=== PATIENT | male | born 1955 | race Caucasian/White ===

== ENCOUNTER 2025-02-05 08:37 | Outpatient (AMB) | payer BC, SELFPAY ==
--- OUTSIDE RECORDS SUMMARY | 2025-02-05 08:43 | XMS_ITS | Patient Health Record ---
Author Organization [facility] Address [address] [facility] [address] [place] [phone] Care Team Providers Care Personal Lines Appraiser Name Role Phone Y[facility] Pena Primary Care Provider Laura Tipton Unavailable [phone] Allergies Allergen (clinical drug ingredient) Drug/Non Drug Allergy documented on EMR Reaction Allergy Type Onset Date Status lisinopril Lisinopril Cough Drug Allergy Activ e Results Component Value Reference Range Notes Beta Strep Gp A Culture-[id number] Reviewed date:08/23/2024 02:31:57 PM Interpretation: Performing Lab:[facility], [address] [facility], [address], [place], Phone - [phone], Director - Bassem Notes/Report: Beta Strep Gp A Culture Negative Refe rence Range: Negative Albumin/Creatinine Ratio,Uri ne-[id number] Reviewed date:03/26/2024 06:09:18 PM Interpretation: Performing Lab:[facility], [address] [facility], [place], Phone - [phone], Director - Renuka Notes/Report: Creatinine, Urine 205.5 Not Estab. mg/dL Albumin, Urine 6.7 Not Estab. ug/mL Alb/Creat Ratio 3 0-29 mg/g creat Normal: 0 - 29 Moderately increased: 30 - 300 Severely increased: >300 LP+Non-HDL Cholesterol-21405 5 Reviewed date:03/26/2024 06:09:18 PM Interpretation: Performing Lab:[facility] [place], [address] [place] [address], Phone - [phone], Director - Renuka Notes/Report: Cholesterol, Total 170 100-199 mg/dL Triglycerides 169 0-149 mg/dL HDL Cholesterol 44 >39 mg/dL VLDL Cholesterol Lamberto 29 5-40 mg/dL LDL Chol Calc (NIH) 97 0-99 mg/dL Non-HDL Cholesterol 126 0-129 mg/dL HCV Antibody-[id number] Reviewed date:03/26/2024 06:09:18 PM Interpretation: Performing Lab:[facility] [place], [address] [place] [address], Phone - [phone], Director - Renuka Notes/Report: Hep C Virus Ab Non Reactive Non Reactive HCV antibody alone does not differentiate between previously resolved infection and active infection. Equivocal and Reactive HCV antibody results should be followed up with an HCV RNA test to support the diagnosis of active HCV infection. PDF Report Reviewed date:03/26/2024 06:09:18 PM Interpretation: Performing Lab:[facility] [place], [address] [place] [address], Phone - [phone], Director Coco Grayson Notes/Report: EBCT Coronary calcium score Reviewed date:07/22/2024 01:15:48 PM Interpretation: Performing Lab: Notes/Report: Respiratory Panel w/ SARS-Co [id number] Reviewed date:09/08/2024 07:36:12 PM Interpretation: Performing Lab:[facility] [place], [address] [place] [address], Phone - [phone], - Renuka Notes/Report: Adenovirus Not Detected Not Detected Coronavirus HKU1 Not Detected Not Detected Coronavirus NL63 Not Detected Not Detected Coronavirus 229E Not Detected Not Detected Coronavirus OC43 Not Detected Not Detected SARS-CoV-2 Detected Not Detected Human Metapneumovirus Not Detected Not Detected Human Rhinovirus/Enterovirus Not Detected Not Detected Influenza A Detected Not Detected Influenza A/H1 TNP Test not perf ormed Influenza A/H1-2009 TNP Test not performed Influenza A/H3 Detected Not Detected Influenza B Not Detected Not Detected Parainfluenza 1 Not Detected Not Detected Parainfluenza 2 Not Detected Not Detected Parainfluenza 3 Not Detected Not Detected Parainfluenza 4 Not Detected Not Detected Respiratory Syncytial Virus Not Detected Not Detected Bordetella parapertussis Not Detected Not Detected Bordetella pertussis Not Detected Not Detected Chlamydophila pneumoniae Not Detected Not Detected Mycoplasma pneumoniae Not Detected Not Detected Chest 2 Views Frontal and La t Reviewed date:08/13/2024 06:05:44 PM Interpretation: Performing Lab: Notes/Report: Examination: Chest performed on 08/13/2024. History: COVID 19. Findings: Frontal and lateral views of the chest are compared to a prior study dated 09/07/2015. The cardiac and mediastinal silhouettes are within normal limits. The lungs are clear. Osteophyte formation within the thoracic spine is present. Impression: There is no acute cardiopulmonary disease. WSN: [id number] Ordering Physician: Y[facility] Pena Dictated By: Catie Ward MD Uric Acid-[id number] Reviewed date:09/05/2024 10:19:01 AM Interpretation: Performing Lab:[facility], [address] [place] [address], Phone - [phone], Director - Renuka Notes/Report: Uric Acid 6.7 3.8-8.4 mg/dL Therapeutic ta rget for gout patients: <6.0 Urinalysis, Complete-[id number] Reviewed date:09/05/2024 10:19:02 AM Interpretation: Performing Lab:[facility], [address] [place] [address], [place], Phone - [phone], Director - Renuka Notes/Report: Specific [place] 1.020 1.005-1.030 pH 5.5 5.0-7.5 Urine-Color Yellow Yellow Appearance Clear Clear WBC Esterase Negative Negative Protein Negative Negative/Trace Glucose Negative Negative Ketones Negative Negative Occult Blood Negative Negative Bilirubin Negative Negative Urobilinogen,Semi-Qn 1.0 0.2-1.0 mg/dL Nitrite, Urine Negative Negative Microscopic Examination Micr oscopic follows if indicated. Microscopic Examination See below: Micr oscopic was indicated and was performed. WBC 0-5 0 - 5 /hpf RBC 0-2 0 - 2 /hpf Epithelial Cells (non renal) 0-10 0 - 10 /hpf Casts None seen None seen /lpf Bacteria None seen None seen/Few Vitamin D, 68-[id number] Reviewed date:09/05/2024 10:19:02 AM Interpretation: Performing Lab:[facility], [address] [facility], Phone - [phone], Director - Renuka Notes/Report: Vitamin D, 25-Hydroxy 34.0 30.0-100.0 ng/mL Vitamin D deficiency has been defined by the [place] [employer] and an Endocrine Society practice guideline as a level of serum 25-OH vitamin D less than 20 ng/mL (1,2). The Endocrine Society went on to further define vitamin D insufficiency as a level between 21 and 29 ng/mL (2). 1. IOM ([place] of [employer]). 2010. Dietary reference intakes for calcium and D. [place]: The National AcademGetQuik Press. 2. Rema MF, Osmar NC, Lisa CHERRY, et al. Evaluation, treatment, and prevention of vitamin D deficiency: an Endocrine Society clinical practice guideline. JCEM. 2010; 96(7):1911-30. Albumin/Creatinine Ratio,Uri ne-[id number] Reviewed date:09/05/2024 10:19:02 AM Interpretation: Performing Lab:[facility], [address] [facility], Phone - [phone], Director - Renuka Notes/Report: Creatinine, Urine 203.7 Not Estab. mg/dL Albumin, Urine 9.1 Not Estab. ug/mL Alb/Creat Ratio 4 0-29 mg/g creat Normal: 0 - 29 Moderately increased: 30 - 300 Severely increased: >300 Comp. Metabolic Panel (14)-3 [id number] Reviewed date:09/05/2024 10:19:02 AM Interpretation: Performing Lab:[facility], [address] [facility], Phone - [phone], Director - Renuka Notes/Report: Glucose 105 70-99 mg/dL BUN 15 8-27 mg/dL Creatinine 0.95 0.76-1.27 mg/dL eGFR 88 >59 mL/min/1.73 BUN/Creatinine Ratio 16 10-24 Sodium 144 134-144 mmol/L Potassium 4.1 3.5-5.2 mmol/L Chloride 101 96-106 mmol/L Carbon Dioxide, Total 28 20-29 mmol/L Calcium 9.2 8.6-10.2 mg/dL Protein, Total 7.0 6.0-8.5 g/dL Albumin 4.2 3.9-4.9 g/dL Globulin, Total 2.8 1.5-4.5 g/dL Bilirubin, Total 0.4 0.0-1.2 mg/dL Alkaline Phosphatase 86 44-121 IU/L AST (SGOT) 18 0-40 IU/L ALT (SGPT) 26 0-44 IU/L LP+Non-HDL Cholesterol-[id number] 5 Reviewed date:09/05/2024 10:19:03 AM Interpretation: Performing Lab:[facility] [place], [address] [place] [address], Phone - [phone], Director - Carlosy Notes/Report: Cholesterol, Total 162 100-199 mg/dL Triglycerides 210 0-149 mg/dL HDL Cholesterol 43 >39 mg/dL VLDL Cholesterol Lamberto 35 5-40 mg/dL LDL Chol Calc (NIH) 84 0-99 mg/dL Non-HDL Cholesterol 119 0-129 mg/dL CR Chest Routine 2 Views Reviewed date:08/14/2024 03:49:28 PM Interpretation: Performing Lab: Notes/Report: Urinalysis, Complete-[id number] Reviewed date:03/26/2024 06:09:18 PM Interpretation: Performing Lab:[facility] [place], [address] [place] [address], Phone - [phone], Director - Carlosy Notes/Report: Specific [place] 1.022 1.005-1.030 pH 5.5 5.0-7.5 Urine-Color Yellow Yellow Appearance Clear Clear WBC Esterase Negative Negative Protein Negative Negative/Trace Glucose Negative Negative Ketones Negative Negative Occult Blood Negative Negative Bilirubin Negative Negative Urobilinogen,Semi-Qn 0.2 0.2-1.0 mg/dL Nitrite, Urine Negative Negative Microscopic Examination Micr oscopic follows if indicated. Microscopic Examination See below: Micr oscopic was indicated and was performed. WBC None seen 0 - 5 /hpf RBC 0-2 0 - 2 /hpf Epithelial Cells (non renal) None seen 0 - 10 /hpf Casts None seen None seen /lpf Bacteria None seen None seen/Few CBC With Differential/Platel et-[id number] Reviewed date:03/26/2024 06:09:18 PM Interpretation: Performing Lab:[facility] [place], [address] [place] [address], Phone - [phone], Director - Carlosy Notes/Report: WBC 6.3 3.4-10.8 x10E3/uL RBC 5.07 4.14-5.80 x10E6/uL Hemoglobin 14.0 13.0-17.7 g/dL Hematocrit 43.2 37.5-51.0 % MCV 85 79-97 fL MCH 27.6 26.6-33.0 pg MCHC 32.4 31.5-35.7 g/dL RDW 14.3 11.6-15.4 % Platelets 228 150-450 x10E3/uL Neutrophils 66 Not Estab. % Lymphs 23 Not Estab. % Monocytes 8 Not Estab. % Eos 2 Not Estab. % Basos 1 Not Estab. % Neutrophils (Absolute) 4.2 1.4-7.0 x10E3/uL Lymphs (Absolute) 1.4 0.7-3.1 x10E3/uL Monocytes(Absolute) 0.5 0.1-0.9 x10E3/uL Eos (Absolute) 0.1 0.0-0.4 x10E3/uL Baso (Absolute) 0.0 0.0-0.2 x10E3/uL Immature Granulocytes 0 Not Estab. % Immature Grans (Abs) 0.0 0.0-0.1 x10E3/uL Prostate-Specific Ag-[id number] Reviewed date:03/26/2024 06:09:18 PM Interpretation: Performing Lab:[email or web address], [address] [place] [address], Phone - [phone], Director - [facility] Notes/Report: Prostate Specific Ag <0.1 0.0-4.0 ng/mL Lindsey ECLIA methodology. . According to the [place] [employer], Serum PSA should decrease and remain at undetectable levels after radical prostatectomy. The AUA defines biochemical recurrence as an initial PSA value 0.2 ng/mL or greater followed by a subsequent confirmatory PSA value 0.2 ng/mL or greater. Values obtained with different assay methods or kits cannot be used interchangeably. Results cannot be interpreted as absolute evidence of the presence or absence of malignant disease. Vitamin D, 12-Moyjplp-[id number] Reviewed date:03/26/2024 06:09:18 PM Interpretation: Performing Lab:[email or web address], [address] [facility], [place], Phone - [phone], Director - MDJodry Notes/Report: Vitamin D, 25-Hydroxy 33.2 30.0-100.0 ng/mL Vitamin D deficiency has been defined by the [place] [employer] and an Endocrine Society practice guideline as a level of serum 25-OH vitamin D less than 20 ng/mL (1,2). The Endocrine Society went on to further define vitamin D insufficiency as a level between 21 and 29 ng/mL (2). 1. IOM ([place]). 2010. Dietary reference intakes for calcium and D. [place]: The National Academies Press. 2. Rema MF, Osmar SUGGS, Lisa CHERRY, et al. Evaluation, treatment, and prevention of vitamin D deficiency: an Endocrine Society clinical practice guideline. JCEM. 2010; 96(7):1911-30. Comp. Metabolic Panel (14)-3 Reviewed date:03/26/2024 06:09:18 PM Interpretation: Performing Lab:[facility], [address] [place] [address], [place], Phone - [phone], Director - Renuka Notes/Report: Glucose 91 70-99 mg/dL BUN 13 8-27 mg/dL Creatinine 0.96 0.76-1.27 mg/dL eGFR 87 >59 mL/min/1.73 BUN/Creatinine Ratio 14 10-24 Sodium 144 134-144 mmol/L Potassium 3.6 3.5-5.2 mmol/L Chloride 102 96-106 mmol/L Carbon Dioxide, Total 26 20-29 mmol/L Calcium 8.9 8.6-10.2 mg/dL Protein, Total 6.9 6.0-8.5 g/dL Albumin 4.2 3.9-4.9 g/dL Globulin, Total 2.7 1.5-4.5 g/dL Bilirubin, Total 0.4 0.0-1.2 mg/dL Alkaline Phosphatase 83 44-121 IU/L AST (SGOT) 23 0-40 IU/L ALT (SGPT) 22 0-44 IU/L Reason For Referral No Information Medications Medication SIG (Take, Route, Frequency, Duration) Notes Start Date End Date Status Omeprazole 20 MG TAKE 1 CAPSULE ONCE A DAY; Duration: 90 Active Multi For Him - Orally Acti ve Valsartan-hydroCHLOROthiazi de 320-25 MG TAKE 1 TABLET DAILY; Duration: 90 Active Sertraline HCl 50 MG TAKE 1 TABLET DAILY ; Duration: 90 Active Rosuvastatin Calcium 20 MG 1 tablet Oral ly Once a day; Duration: 90 days 09/02/2024 Active Immunizations Vaccine Route Administration Date Status Comme nts *Influenza, High Dose Seasonal, Quadrivatent Unknown 05/05/2022 Administered *Mqlnvhcab-Qaichen-Ximw Dose-65+ Unknown 03/28/2024 Administered *Influenza-Quadrivalent IM Intramuscular 05/25/2023 Admini stered *PREVNAR 20 IM Intramuscular 03/13/2024 Administered *Tdap Unknown 02/12/2010 Administered COVID 19 (Pfizer 12+) Unknown 10/30/2021 Administered COVID COMIRNATY Pfizer Unknown 05/31/2023 Administered COVID Spikevax Moderna Unknown 03/28/2024 Administered HZJYV-71-Tikzyo Vaccine Unknown 09/28/2020 Administered FWIDO-82-Rovswi Vaccine Unknown 10/19/2020 Administered GEFQH-78-Cctxah Vaccine Unknown 06/26/2021 Administered Influenza, seasonal, injectable, preservative free, 4 yrs and above Unknown 04/23/2008 Administered Influenza, seasonal, injectable, preservative free, 4 yrs and above Unknown 04/23/2009 Administered Influenza, seasonal, injectable, preservative free, 4 yrs and above Unknown 09/22/2009 Administered Influenza, seasonal, injectable, preservative free, 4 yrs and above Unknown 05/17/2010 Administered Influenza, seasonal, injectable, preservative free, 4 yrs and above Unknown 03/29/2011 Administered Influenza, seasonal, injectable, preservative free, 4 yrs and above Unknown 05/30/2017 Administered Vdxkkuhqn-[id number] Afluria-Single Unknown 05/10/2018 Administered Influenza-Afluria (IIV4) Unknown 06/24/2019 Administere d Influenza-Afluria (IIV4) Unknown 06/01/2020 Administere d RSV-Arexby Unknown 06/26/2023 Administered Td (adult) preservative free Unknown 05/02/2000 Administered Td (adult) preservative free IM Intramuscular 01/28/2020 Administered Social History Tobacco Use: Social History Observation Description Date Details (start date - stop date) Never Smoker NA - NA AUDIT-C (Standard) Question Answer Notes Did you have a drink contain ing alcohol in the past year? Yes How often did you have six o r more drinks on one occasion in the past year? Never (0 point) How many drinks did you have on a typical day when you were drinking in the past year? 1 or 2 drinks (0 point) How often did you have a dri nk containing alcohol in the past year? 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) Active confirmed Problem Information temporarily unavailable Vitamin D deficiency, unspecified (E55.9) Active confirmed Problem Information temporarily unavailable Morbid (severe) obesity due to excess calories (E66.01) Active confirmed Problem Information temporarily unavailable Mixed hyperlipidemia (E78.2) Active confirmed Problem Information temporarily unavailable Generalized anxiety disorder (F41.1) Active confirmed Problem Information temporarily unavailable Anxiety disorder, unspecified (F41.9) Active confirmed Problem Information temporarily unavailable Obstructive sleep apnea (adult) (pediatric) (G47.33) Active confirmed Problem Information temporarily unavailable Carpal tunnel syndrome, right upper limb (G56.01) Active confirmed Problem Information temporarily unavailable Carpal tunnel syndrome, left upper limb (G56.02) Active confirmed Problem Information temporarily unavailable Sensorineural hearing loss, bilateral (H90.3) Active confirmed Problem Information temporarily unavailable Hypertensive chronic kidney disease with stage 1 through stage 4 chronic kidney disease, or unspecified chronic kidney disease (I12.9) Active confirmed Problem Information temporarily unavailable Gastro-esophageal reflux disease without esophagitis (K21.9) Active confirmed Problem Information temporarily unavailable Chronic gout, unspecified, 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0) Active confirmed Problem Information temporarily unavailable Personal history of malignant neoplasm of prostate (Z85.46) Active confirmed Problem Information temporarily unavailable Personal history of colonic polyps (Z86.010) Active confirmed Problem Information temporarily unavailable Personal history of colonic polyps (Z86.010) Active confirmed Problem Information temporarily unavailable Body mass index [BMI] 37.0-37.9, adult (Z68.37) Active confirmed Problem Information temporarily unavailable Body mass index [BMI] 35.0-35.9, adult (Z68.35) Inactive confirmed Problem Information temporarily unavailable Ulcer of intestine (K63.3) Problem resolved confirmed Problem Information temporarily unavailable Derangement of posterior horn of lateral meniscus due to old tear or injury, left knee (M23.252) Problem resolved confirmed Problem Information temporarily unavailable COVID19 CHACE-Virus Identified (U07.1) Problem resolved confirmed Vital Signs Heart Rate 90 /min 09/02/2024 Temperature 96.3 degrees Fahrenheit 09/02/2024 Blood pressure diastolic 74 mm Hg 09/02/2024 Oximetry 96 % 09/02/2024 Height 70 in 09/02/2024 Blood pressure systolic 114 mm Hg 09/02/2024 Weight 254 lbs 09/02/2024 BMI 36.44 kg/m2 09/02/2024 Encounters Encounter Location Date Provider Diagnosis Yosvany Pena MD [address] [id number] 04/01/2024 Yosvany Pena MD [address] [id number] 08/06/2024 Yosvany Pena MD [address] [id number] 08/13/2024 Yosvany JUSTICEID19 CHACE-Virus Identified U07.1 Yosvany Pena MD [address] [id number] 08/13/2024 Yosvany Pena MD [address] [id number] 08/22/2024 Yosvany Pena MD [address] [id number] 08/23/2024 Yosvany Pena MD [address] [id number] 09/04/2024 Yosvany Pena MD [address] [id number] 09/05/2024 Yosvany Pena MD [address] [id number] 09/06/2024 Yosvany Pena MD [address] [place] [id number] 09/08/2024 Yosvany Pena MD [address] [place] [address], [place] [id number] 04/02/2024 Yosvany Pena MD [address] [place] [address] [id number] 04/10/2024 Yosvany Pena MD [address] [place] [address] [id number] 08/13/2024 Yosvany Pena MD [address] [place] [address] [id number] 08/18/2024 Yosvany Pena MD [address] [place] [address], [place] [id number] 08/19/2024 Yosvany Pena MD [address] [place] [address] [id number] 08/20/2024 Yosvany Pena MD [address] [place] [address] [id number] 10/28/2024 Yosvany Pena MD [address] [place] [address] [id number] 10/28/2024 Yosvany Pena MD [address] [place] [address] [id number] 09/02/2024 Yosvany Pena Hypertensive chronic kidney disease with stage 1 through stage 4 chronic kidney disease, or unspecified chronic kidney disease I12.9 ; Chronic kidney disease, stage 2 (mild) N18.2 ; Gastro-esophageal reflux disease without esophagitis K21.9 ; Body mass index [BMI] 35.0-35.9, adult Z68.35 ; Morbid (severe) obesity due to excess calories E66.01 ; Generalized anxiety disorder F41.1 ; Obstructive sleep apnea (adult) (pediatric) G47.33 ; Mixed hyperlipidemia E78.2 ; Chronic gout, unspecified, without tophus (tophi) M1A.9XX0 and Vitamin D deficiency, unspecified E55.9 Yosvany Pena MD [address] [place] [address] [id number] 09/05/2024 Yosvany Pena Acute upper respirat ory infection, unspecified J06.9 Yosvany Pena MD [address] [id number] 03/13/2024 Yosvany Pena Encounter for genera l adult medical examination without abnormal findings Z00.00 ; Hypertensive chronic kidney disease with stage 1 through stage 4 chronic kidney disease, or unspecified chronic kidney disease I12.9 ; Chronic kidney disease, stage 2 (mild) N18.2 ; Gastro-esophageal reflux disease without esophagitis K21.9 ; Body mass index [BMI] 35.0-35.9, adult Z68.35 ; Morbid (severe) obesity due to excess calories E66.01 ; Generalized anxiety disorder F41.1 ; Obstructive sleep apnea (adult) (pediatric) G47.33 ; Mixed hyperlipidemia E78.2 ; Family history of malignant neoplasm of digestive organs Z80.0 ; Personal history of colonic polyps Z86.010 ; Personal history of malignant neoplasm of prostate Z85.46 ; Chronic gout, unspecified, without tophus (tophi) M1A.9XX0 ; Vitamin D deficiency, unspecified E55.9 ; Encounter for screening for malignant neoplasm of colon Z12.11 ; Encounter for screening for malignant neoplasm of prostate Z12.5 ; Encounter for screening for cardiovascular disorders Z13.6 ; Encounter for immunization Z23 ; Encounter for antibody response examination Z01.84 ; Encounter for screening for other viral diseases Z11.59 ; Sensorineural hearing loss, bilateral H90.3 and Presence of external hearing-aid Z97.4 Yosvany Pena MD [address] [id number] 04/10/2024 Yosvany Pena Hypertensive chronic kidney disease with stage 1 through stage 4 chronic kidney disease, or unspecified chronic kidney disease I12.9 Yosvany Pena MD [address] [id number] 04/02/2024 Laura Tipton Hypertensive chronic kidney disease with stage 1 through stage 4 chronic kidney disease, or unspecified chronic kidney disease I12.9 and Chronic kidney disease, stage 2 (mild) N18.2 Yosvany Pena MD [address] [id number] 08/20/2024 Yosvany Pena Acute pharyngitis, unspecified J02.9 Assessments Encounter Date Diagnosis (ICD Code) Assessment Notes Treatment Notes Treatment Clinical Notes Section Notes 04/02/2024 Hypertensive chronic kidney disease with stage 1 through stage 4 chronic kidney disease, or unspecified chronic kidney disease (ICD-10 - I12.9) Reviewed patient's blood pressure log on his home blood pressure monitor and readings are noted to be between 140s-150s over 70s-80s. This is a new finding for patient as his documented blood pressures have all been stable prior to this incident. Suspect that patient's blood pressure is responding and elevated due to his recent COVID-vaccine. It is only been 5 days since his COVID-vaccine and would like patient to continue his medication regimen and monitor his morning blood pressures at home, and be seen in the office next week for blood pressure check to ensure his blood pressure has normalized post COVID-vaccine 04/02/2024 Chronic kidney disease, stage 2 (mild) (ICD-10 - N18.2) Stable with estimated GFR in the high 70s. Continue medication regimen to control comorbidity of hypertension 04/10/2024 Hypertensive chronic kidney disease with stage 1 through stage 4 chronic kidney disease, or unspecified chronic kidney disease (ICD-10 - I12.9) His blood pressure is improving. He is using a nonvalidated machine at home and his blood pressure log is entered into the chart as an image. At the present time he has improved blood pressure and his transient elevated blood pressure are complication of his COVID vaccination. This should continue to improve. Recommend he use a validated blood pressure cuff at home to verify control. He has a new machine that he has yet to set up and recommend he do so. If he has elevated blood pressures of concern at home we can always reevaluate in the office. No change in medical therapy indicated at present time 08/20/2024 Acute pharyngitis, unspecified (ICD-10 - J02.9) See prior message for additional history. He is concerned that he may have strep. He does not have a headache and he has a cough without any tender lymph nodes and without a fever. His prior probability for strep pharyngitis is low. Culture is done and if the culture is surprisingly positive then we can treat him with antibiotic therapy.Otherwise recommend conservative therapy 09/02/2024 Hypertensive chronic kidney disease with stage 1 through stage 4 chronic kidney disease, or unspecified chronic kidney disease (ICD-10 - I12.9) His blood pressure is much lower. That may be due to his recent illness but at the present time can continue current medical therapy and reevaluate this fall. 09/02/2024 Chronic kidney disease, stage 2 (mild) (ICD-10 - N18.2) Stable estimated GFR in the 70s. Continue control of comorbidity of hypertension. Recheck status 03/13/2024 Hypertensive chronic kidney disease with stage 1 through stage 4 chronic kidney disease, or unspecified chronic kidney disease (ICD-10 - I12.9) Stable at present. Continue current medical therapy 03/13/2024 Encounter for general adult medical examination without abnormal findings (ICD-10 - Z00.00) General healthcare up-to-date. Check routine labs. Await completion of healthcare proxy and MOST form. He is reminded to complete this. 09/05/2024 Acute upper respiratory infection, unspecified (ICD-10 - J06.9) 08/13/2024 COVID19 CHACE-Virus Identified (ICD-10 - U07.1) 03/13/2024 Chronic kidney disease, stage 2 (mild) (ICD-10 - N18.2) Stable with estimated GFR in the high 70s. Continue control of comorbidity of hypertension 09/02/2024 Gastro-esophageal reflux disease without esophagitis (ICD-10 - K21.9) Symptomatically stable. 09/02/2024 Body mass index [BMI] 35.0-35.9, adult (ICD-10 - Z68.35) Stable at present. Continue exercise such as walking 03/13/2024 Gastro-esophageal reflux disease without esophagitis (ICD-10 - K21.9) Symptomatically stable. 03/13/2024 Body mass index [BMI] 35.0-35.9, adult (ICD-10 - Z68.35) Stable at present. Continue exercise such as walking 09/02/2024 Morbid (severe) obesity due to excess calories (ICD-10 - E66.01) Continue to encourage diet and exercise and weight loss 09/02/2024 Generalized anxiety disorder (ICD-10 - F41.1) Stable with current medical therapy 03/13/2024 Morbid (severe) obesity due to excess calories (ICD-10 - E66.01) Continue to encourage diet and exercise and weight loss 03/13/2024 Generalized anxiety disorder (ICD-10 - F41.1) Controlled with current medical therapy 09/02/2024 Obstructive sleep apnea (adult) (pediatric) (ICD-10 - G47.33) Stable at present. He continues to use CPAP with benefit. He also sleeps in a recliner because his shoulder feels better when he does so. 09/02/2024 Mixed hyperlipidemia (ICD-10 - E78.2) Stable at present. His calculated cardiovascular risk 7.8%. He may benefit from changing his statin therapy for lower rate of progression as he ages. 03/13/2024 Obstructive sleep apnea (adult) (pediatric) (ICD-10 - G47.33) Continues to use CPAP with benefit 03/13/2024 Mixed hyperlipidemia (ICD-10 - E78.2) Stable on recent labs as reviewed. His calculated risk is slightly elevated at 10.8%. Recommend coronary artery calcium score for further risk assessment and validation. If his risk is higher than he would benefit from more aggressive risk modification 09/02/2024 Chronic gout, unspecified, without tophus (tophi) (ICD-10 - M1A.9XX0) Stable without any active flares. Can recheck uric acid 09/02/2024 Vitamin D deficiency, unspecified (ICD-10 - E55.9) Stable on prior labs as reviewed. Recheck status and would consider supplementation for goal level of 30+ if possible 50+ 03/13/2024 Family history of malignant neoplasm of digestive organs (ICD-10 - Z80.0) Up-to-date on colonoscopy 03/13/2024 Personal history of colonic polyps (ICD-10 - Z86.010) Up-to-date on colonoscopy 03/13/2024 Personal history of malignant neoplasm of prostate (ICD-10 - Z85.46) No evidence of recurrence 03/13/2024 Chronic gout, unspecified, without tophus (tophi) (ICD-10 - M1A.9XX0) Stable without any active flares 03/13/2024 Vitamin D deficiency, unspecified (ICD-10 - E55.9) Fair control on prior labs as reviewed. Continue vitamin D supplementation for goal level of 30+ and if possible 50+ 03/13/2024 Encounter for screening for malignant neoplasm of colon (ICD-10 - Z12.11) Up-to-date on colon cancer screening 03/13/2024 Encounter for screening for malignant neoplasm of prostate (ICD-10 - Z12.5) Can check PSA has prostate cancer screening realizing the limitation of this test as a screening test 03/13/2024 Encounter for screening for cardiovascular disorders (ICD-10 - Z13.6) Blood pressure is stable. Can check for comorbidity of hyperlipidemia and hyperglycemia to further assess risk. 03/13/2024 Encounter for immunization (ICD-10 - Z23) Vaccines updated 03/13/2024 Encounter for antibody response examination (ICD-10 - Z01.84) He would be considered immune to rubeola by virtue of his age 0803/13/2024 Encounter for screening for other viral diseases (ICD-10 - Z11.59) Can screen for hepatitis C as per general recommendation 03/13/2024 Sensorineural hearing loss, bilateral (ICD-10 - H90.3) Stable and unchanged 03/13/2024 Presence of external hearing-aid (ICD-10 - Z97.4) He had his hearing test and now is using hearing aids with benefit 03/13/2024 Other This note was created with voice dictation recognition software and may contain errors of grammar and syntax. Also labs were reviewed with patient. 09/02/2024 Other This note was created with voice dictation recognition software and may contain errors of grammar and syntax. Also labs were reviewed with patient. 04/10/2024 Other This note was created with voice dictation recognition software and may contain errors of grammar and syntax. 08/20/2024 Other This note was created with voice dictation recognition software and may contain errors of grammar and syntax. Plan Of Treatment Pending Test Test Name Order Date X ray : Chest with 2 views 08/24/2022 25OH VITAMIN D 02/07/2019 25OH VITAMIN D 02/23/2023 25OH VITAMIN D 02/21/2022 25OH VITAMIN D 08/09/2017 25OH VITAMIN D 08/09/2021 25OH VITAMIN D 02/03/2021 COMPLETE CBC WITH DIFF 02/03/2021 COMPLETE CBC WITH DIFF 08/09/2021 COMPLETE CBC WITH DIFF 08/09/2017 COMPLETE CBC WITH DIFF 02/21/2022 COMPLETE CBC WITH DIFF 02/07/2019 COMPLETE URINALYSIS 02/03/2021 COMPLETE URINALYSIS 02/07/2019 COMPLETE URINALYSIS 02/21/2022 COMPLETE URINALYSIS 02/23/2023 COMPLETE URINALYSIS 08/09/2021 COMPLETE URINALYSIS 08/09/2017 COMPREHENSIVE METABOLIC PANEL 02/03/2021 COMPREHENSIVE METABOLIC PANEL 08/09/2017 COMPREHENSIVE METABOLIC PANEL 08/09/2021 COMPREHENSIVE METABOLIC PANEL 02/23/2023 COMPREHENSIVE METABOLIC PANEL 02/21/2022 COMPREHENSIVE METABOLIC PANEL 02/07/2019 FERRITIN 08/09/2017 IMMUNOFIXATION SERUM 08/09/2017 LDH 08/09/2017 LIPID PANEL W REFLEX TO DLDL 08/09/2017 LIPID PANEL W REFLEX TO DLDL 08/09/2021 LIPID PANEL W REFLEX TO DLDL 02/03/2021 LIPID PANEL W REFLEX TO DLDL 02/21/2022 LIPID PANEL W REFLEX TO DLDL 02/23/2023 LIPID PANEL W REFLEX TO DLDL 02/07/2019 MAGNESIUM 02/07/2019 PSA 02/21/2022 PSA 02/03/2021 PSA 08/09/2021 RETICULOCYTE COUNT 08/09/2017 URIC ACID 08/09/2021 URIC ACID 02/03/2021 URIC ACID 02/21/2022 URIC ACID 02/23/2023 URINARY MICROALBUMIN 02/03/2021 VITAMIN B12 08/09/2017 CBC 06/03/2021 COMPREHENSIVE METABOLIC PANEL 06/03/2021 ESR 06/03/2021 FOLATE 08/09/2017 URIC ACID 06/03/2021 ANTI-HEPATITIS C W/RFLX HCV QNT 02/22/20 22 MMR (MEASLES, MUMPS, RUBELLA) IGG TITER 02/03/2021 MMR (MEASLES, MUMPS, RUBELLA) IGG TITER 02/07/2019 COVID and INFLUENZA Rapid Assay 08/08/19 23 Urinalysis, Complete-[id number] 11/22/2023 Albumin/Creatinine Ratio,Urine-[id number] Future Test Test Name Order Date 25OH VITAMIN D 01/22/2024 COMPLETE CBC WITH DIFF 01/22/2024 COMPLETE URINALYSIS 01/22/2024 COMPREHENSIVE METABOLIC PANEL 01/22/2024 LIPID PANEL W REFLEX TO DLDL 01/22/2024 PSA 01/22/2024 URIC ACID 01/22/2024 ANTI-HEPATITIS C W/RFLX HCV QNT 01/22/20 24 Next Appt Details Provider Name:Yosvany Pena , 03/25/2025 11:00:00 AM, [address] [place] [address], [address], [place], [place], [id number], Insurance Providers Payer Name Payer Address Payer Phone Subscriber Number Group Number Insured Name Patient Relationship to Insured Coverage Start Date Coverage End Date [employer] MEDICARE PPO BLUE [address] [place] [address] [id number] Tarik Beckett Self - patient is the insured Medical (General) History Medical History History ICD Code Essential (primary) hypertension I10 Personal history of malignant neoplasm o f prostate Z85.46 Obstructive sleep apnea (adult) (pediatr ic) G47.33 Gastro-esophageal reflux disease without esophagitis K21.9 Anxiety disorder, unspecified F41.9 Family history of malignant neoplasm of digestive organs Z80.0 Personal history of colonic polyps Z86.0 10 Benign lipomatous neoplasm of skin and s ubcutaneous tissue of right leg D17.23 Derangement of posterior hor n of lateral meniscus due to old tear or injury, left knee (resolved 08/09/2021) COVID19 CHACE-Virus Identified (resolved 1 07/25/2022) undefined Ulcer of intestine (resolved 05/25/2023) Surgical History Surgery Date(Month/Year) Uvulectomy 07/2015 prostatectomy 07/2009 ORIF Tibia Fracture, Left ORIF Fibula Fracture, Left Inguinal Hernia Repair, LEFT tonsillectomy arthroscopic knee surgery 06/2021 Hospitalization History Reason Date(Month/Year)
--- OUTSIDE RECORDS SUMMARY | 2025-02-05 08:43 | XMS_ITS | Data Portability ---
Author Organization [facility] Address [address] [facility],[address] [place] [address] Care Team Providers Care Scrap Preparation Supervisor Name Role Phone LO GARCIA Primary Care Provider Assessment Encounter Date Assessment Date Assessment LastModified by Organization Details LastModified Time 08/06/2021 08/06/2021 Tarik Beckett is a 66 year old man with low back pain radiating into both lower extremities. On exam ,he has pain on flexion. MRI Lumbar spine shows Spondylotic and degenerative disc changes of the lumbar spine are present . Trial of Lumbar epidural steroid injections under fluroscopic guidance was recommended if pain returns. Current pain level is 1-2/10. The risks and benefits of the procedure were discussed in detail. He wishes to proceed.He will call for an appointment. He needs a salesperson driver on the day of the procedure. [email or web address] Not available 08/10/2021 14:00:02 Plan of Treatment Reminders Order Date Submit Date Provider Last Modified By Organization Details Last Modified Time Details Appointments None record ed. Lab None record ed. Referral None record ed. Procedures None record ed. Surgeries None record ed. Imaging None record ed. Medication Orders None record ed. Patient TargetsNo targets recorded. Patient Instructions Encounter Date Encounter Id Patient Instructions Last Modified By Organization Details Last Modified Time 08/06/2021 [id number] He was advised against bed rest lasting longer than four days and to continue activities as tolerated. [email or web address] Not available 08/10/2021 13:59:13 Reason for Referral None Reported. Problems Name Problem SNOMED Code Status Onset Date Resolution Date Notes Provider Name and Address Organization Details Recorded Time Degeneration of lumbar intervertebral disc 73767968 Active Driss gallegos MD [address] [facility] [place] , [address], [place], [address], [place] [facility] 09:40:37 Lumbosacral radiculopathy 7735592 Active Driss gallegos MD [address] [facility] , [address], [place], [address], [place] [facility] 13:27:52 Problem Notes None recorded. Procedures Surgical History Date Name Laterality Status Provider Name and Address Organization Details Recorded Time Tonsillectomy completed Driss Nava MD [address] [facility] , [address], [place], [address], [place] [facility] 08/06/2021 09:45:46 Hernia Repair completed Driss Nava MD [address] [facility] , [address], [place], [address], [place] [facility] 08/06/2021 09:46:21 Prostate Surgery completed Driss Nava MD [address] [facility] , [address], [place], [address], [place] [facility] 08/06/2021 09:46:35 Knee arthroscopy/surger y completed Driss Nava MD [address] [facility] , [address], [place], [address], [place] [facility] 08/06/2021 09:46:52 Imaging Results None recorded. Procedure Notes None recorded. Medical Equipment None Reported. Allergies Allergen ID Allergen Name Allergen Category Reaction Reaction Severity Criticality Documentation Date Start Date Code Code System Note Provider Name and Address Organization Details Recorded Time 91428 lisinopri l medicatio n cough Not available Not available 08/06/2021 35491 RxNorm Driss gallegos MD [address] [facility] , [address], [place], [address], [place] [facility] 09:37:36 Medications Name Sig Start Date Stop Date Status Note LastModified by Organization Details LastModified Time amoxicillin 500 mg capsule 08/06 completed Not Available Not Available Not Available benzonatate 200 mg capsule 08/06 completed Not Available Not Available Not Available meloxicam 15 mg tablet active Not Available Not Available Not Available simvastatin 20 mg tablet active Not Available Not Available No t Available gabapentin 300 mg capsule 08/06 completed Not Available Not Available Not Available methylprednisolo ne 4 mg tablets in a dose pack 08/06 completed Not Available Not Available Not Available sertraline 50 mg tablet active Not Available Not Available Not Available diazepam 5 mg tablet 08/06 completed Not Available Not Available Not Available omeprazole active Not Available Not Av ailable Not Available valsartan 320 mg-hydrochloroth iazide 25 mg tablet active Not Available Not Available Not Available Anoro Ellipta 62.5 mcg-25 mcg/actuation powder for inhalation active Not Available Not Available N ot Available Vitals Date Recorded Body height Body mass index (BMI) Body weight Heart rate Oxygen saturation Oxygen saturation in Arterial blood by Pulse oximetry Systolic And Diastolic Provider Name and Address Organization Details Last Updated DateTime 2 182.88 cm 35.3 kg/m2 398671. 02 g 73 /min 96 % 96 % 164/88 mm[Hg] Driss gallegos MD [address] [facility] , [address], [place], [address], [place] [facility] 09:27:58 Social History Question Answer Notes LastModified by Organizat ion Details LastModified Time Tobacco Smoking Status Never Smoker Driss Nava MD [address] [facility] , [address], [place], [address], [place] [facility] 08/06/2021 09:42:47 Are You Blind Or Do You Have Difficulty Seeing? Yes Wears Glasses Information not available 08/06/2021 In The 14 Days Before Symptom Onset, Have You Had Close Contact With A Laboratory-confir med COVID-19 While That Case Was Ill? No Information not available 08/06/2021 In The 14 Days Before Symptom Onset, Have You Had Close Contact With A Person Who Is Under Investigation For COVID-19 While That Person Was Ill? No Information not available 08/06/2021 Have You Been To An Area Known To Be High Risk For COVID-19? No Information not available 08/06/2021 Are You Deaf Or Do You Have Serious Difficulty Hearing? Yes Wears Hearing Aid Information not available 08/06/2021 What Is The Highest Grade Or Level Of School You Have Completed Or The Highest Degree You Have Received? DF10260-2 Information not available 08/06/2021 Do You Have Difficulty Walking Or Climbing Stairs? No Information not available 08/06/2021 Sex: Unknown Functional Status Question Answer Note LastModified by Organizat ion Details LastModified Time Do you use any illicit or recreational drugs? No Information not available 08/06/2021 What is your level of alcohol consumption? None Information not available 08/06/2021 Are you currently employed? Yes Information not available 08/06/2021 Do you have difficulty doing errands alone? No Information not available 08/06/2021 What is your occupation? [employer] Information not available 08/06/2021 Do you have difficulty dressing or bathing? No Information not available 08/06/2021 Mental Status Question Answer Note LastModified by Organization D etails LastModified Time Do you have difficulty concentrating, remembering or making decisions? No Information no t available 08/06/2021 Family History Relationship Description Onset Age of this Age Resolved Age Notes LastModified by Organization Details LastModified Time Sister Arthritis [email or web address] Not avail able 08/06/2021 09:41:09 Medical History Condition Response Anxiety Disorder Y Irritable Bowel Syndrome Y Hypertension Y GERD/Reflux Y Past Encounters Encounter ID Performer Location Encounter Start Date Encounter Closed Date Diagnosis/Indication Diagnosis SNOMED-CT Code Diagnosis ICD10 Code Diagnosis Note [id number] Driss Nava MD PA[facility] [address] [place] [address] [address] [place] [address] 08/06/2021 08:52:28 08/10/2021 14:01:19 Degeneration of lumbar intervertebral disc 27638214 M51.36 Lumbosacra l radiculopathy 4471552 M54.17 Health Concerns Section Related Observation LastModified by Organization Detai ls LastModified Time None Recorded Concern Status LastModified by Organization Details LastModified Time None Recorded Advance Directives Directive None Recorded Payers Insurance Date Sequence Insurance Name Policy Number Policy [place] Covered Member ID [place] Member ID Guarantor Name 09/02/2021 1 [facility] [id number] Tarik Beckett [id number] Tarik Beckett Notes Date Note Type Note Provider Name and Address Organization Details Recorded Time 08/06/2021 text/html Tarik Beckett is a 66 year old man with complaints of low back pain radiating into both lower extremities. He has been having pain since 1998. He states he has episodes of sciatic pain which improve with physical therapy . He was having left knee swelling around Thanksgi2020 .He had no improvement with ice and rest . He had seen Dr. Gaona, Orthopedics and is S/P Knee arthroscopy for a torn meniscus 2 weeks ago and is feeling better. He had low back pain radiating into both lower extremities . He describes the pain as a burning pain and sharp stabbing in his low back. He feels this has subsided as well. Current pain level is 1/10. Pain was aggravated by movement and work. Pain is relieved by rest and Ibuprofen. Pain was interfering with sleep. No history of bladder or bowel incontinence.He has trialed acupuncture, massage , physical therapy and home exercise program with good pain benefit.MRI Lumbar spine shows Multilevel degenerative disc and facet disease resulting in mild central stenosis at L3-4 and L4-5 with lateral recess and neuroforaminal encroachments Driss Nava MD [address] [facility] , [address], [place], [address], [place] [facility] 08/11/2021 16:08:54
[2025-02-05 08:48] VITALS: BP 132/72; PULSE 65; O2SAT 95; BMI 35.4
--- NOTE | 2025-02-05 08:48 | MHC.OFFVIS ---
Vital Signs 02/05/25 08:48 Height 6 ft Weight 261 lb BMI 35.4 BP 132/72 Blood Pressure Location Lt brachial Position Sitting Pulse 65 Pulse Source Pulse Oximeter Pulse Oximetry (%) 95 Oxygen Delivery Method Room Air Intake Visit Reasons: OA Intake Note: Patient presents for an oa follow up Accompanied by: Self / Same As Patient Allergies lisinopril Adverse Reaction (Mild, Verified 02/05/25 08:52) Throat issues HPI HPI OA: Details: Last visit 08/2022 ATC. He is experiencing right knee medial aspect burning pain for a year. Occasionally has nocturnal pain. Longer he drives it progresses the pain. Has to stand up for sometimes before he starts walking. Not self medicating. Occationally uses compression sleeve knee brace. Weight gain 20lb. Left knee meniscus repair 2022. Physical Exam Vital Signs: Last Vital Signs Pulse 65 02/05/25 08:48 BP 132/72 02/05/25 08:48 Pulse Ox 95 02/05/25 08:48 Oxygen Delivery Method Room Air 02/05/25 08:48 BMI result Body Mass Index 35.4 Const Other: General: Comfortable Skin: No lesions seen MSK: No tender joint line. Right knee Whitney's cyst palpated. Normal range of motion of bilateral knees. Assessment & Plan Assessment & Plan (1) Right knee pain: Comment: Chronic 1 year history of medial right knee pain. He has a Whitney's cyst of right knee but it would not explain his pain. Code(s): M25.561 - Pain in right knee Category: Medical Qualifiers: Chronicity: chronic Qualified Code(s): M25.561 - Pain in right knee; G89.29 - Other chronic pain Plan: He agreed to physical therapy for knee strengthening. He prefers to do physical therapy local to his home. Requisition printed for patient Right knee x-ray ordered Encouraged weight loss with healthy eating and exercise. Weight loss goal of 10 lb-20lb for next visit Return to clinic in 3 months Orders: Orders XR knee RT 2V Today M25.561 - Pain in right knee PT Evaluation and Treatment Today M25.561 - Pain in right knee Coding Level of Care Code Est Pt Level 3 (84898) Complex EM visit Add On G2211 Diagnoses Chronic pain of right knee M25.561; G89.29 Chronicity: chronic
== END 2025-02-05 09:42 | disposition home or self-care (01) ==
PROVIDERS: PCP Internal Medicine; Visit Provider Internal Medicine Rheumatology
DX: M25.561 Pain in right knee (principal); G89.29 Other chronic pain
CPT/HCPCS: 99213

== ENCOUNTER 2025-02-17 09:24 | Outpatient (REF) | payer BC, SELFPAY ==
--- NOTE | ~2025-02-17 | XR_ITS ---
EXAMINATION: XR KNEE, RIGHT CLINICAL INFORMATION: M25.561 - Pain in right knee COMPARISON: None available. TECHNIQUE: Two views of the right knee. FINDINGS: No fracture, dislocation, or suspicious bone lesion. There is normal alignment. There is subtle chondrocalcinosis in the medial and lateral compartments, suggestive of CPPD. There is mild arthritis in the patellofemoral joint with minimal associated spurring. The medial and lateral compartments appear preserved. There is mild enthesopathic spurring of the superior patella. There is no significant joint effusion. No soft tissue abnormalities. XR/XR knee RT 2V IMPRESSION: 1. No acute bony abnormalities of the right knee. 2. 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 3. There are early arthritic changes in the patellofemoral joint. Electronically signed by: Will Leonard MD 02/17/2025 09:52 AM EDT
--- OUTSIDE RECORDS SUMMARY | 2025-02-17 10:15 | XMS_ITS | Data Portability ---
Author Organization [facility], [facility] PAIN OFF[facility] Address [address] [facility] [place] [address] Care Team Providers Care Preschool Associate Teacher Name Role Phone LO GARCIA Primary Care [...] call for an appointment. He needs a septic pump truck driver on the day of the procedure. [...] By Organization Details Last Modified Time 08/06/2021 [id number] He was advised against bed rest lasting longer than four days and to continue activities as tolerated. [email or web address] Not available 08/10/2021 13:59:13 Reason for Referral None Reported. Problems Name Problem SNOMED Code Status Onset Date Resolution Date Notes Provider Name and Address Organization Details Recorded Time Degeneration of lumbar intervertebral disc 55931823 Active Driss gallegos MD [address] [facility] , [address], [place], [address], [place] - [facility] 09:40:37 Lumbosacral radiculopathy 3849072 Active Driss gallegos MD [address] [facility] , [address], [place], [address], [place] [facility] 13:27:52 Problem Notes None recorded. Procedures Surgical History Date Name Laterality Status Provider Name and Address Organization Details Recorded Time Tonsillectomy completed Driss Nava MD [address] [facility] , [address], [place], [address], [place] [facility] 08/06/2021 09:45:46 Hernia Repair completed Driss Nava MD [address] [facility] , [address], [place], [address], [place] [facility] 08/06/2021 09:46:21 Prostate Surgery completed Driss Nava MD [address] [facility] , [address], [place], [address], [place] [facility] 08/06/2021 09:46:35 Knee arthroscopy/surger y completed Driss Nava MD [address] [facility] , [address], [place], [address], [place] [facility] 08/06/2021 09:46:52 Imaging Results None recorded. Procedure Notes None recorded. Medical Equipment None Reported. Allergies Allergen ID Allergen Name Allergen Category Reaction Reaction Severity Criticality Documentation Date Start Date Code Code System Note Provider Name and Address Organization Details Recorded Time 54250 lisinopri l medicatio n cough Not available Not available 08/06/2021 87562 RxNorm Driss gallegos MD [address] [facility] , [address], [place], [address], [place] - [facility] [...] saturation in Arterial blood by Pulse oximetry Pain severity - 0-10 verbal numeric rating [Score] - Reported Systolic And Diastolic Provider Name and Address Organization Details Last Updated DateTime 2 182.88 cm 35.3 kg/m2 396078. 02 g 73 /min 96 % 96 % 1 164/88 mm[Hg] Driss gallegos MD [address] [facility] , [address], [place], [address], [place] - [facility] 2 09:27:58 Social History Question Answer Notes LastModified by Organizat ion Details LastModified Time Tobacco Smoking Status Never Smoker Driss Nava MD [address] [facility] , [address], [place], [address], [place] - [facility] 08/06/2021 09:42:47 [...] Or The Highest Degree You Have Received? OS10696-8 Information not available 08/06/2021 Do You Have [...] not available 08/06/2021 What is your occupation? [employer] Information not available 08/06/2021 Do you have difficulty dressing, bathing, grooming, or toileting? No Information not available 08/06/2021 Mental Status [...] SNOMED-CT Code Diagnosis ICD10 Code Diagnosis Note [id number] Driss Nava MD PAIN OFFICE [address] [facility] [address] [place] [address] 08/06/2021 08:52:28 08/10/2021 14:01:19 Degeneration of lumbar intervertebral disc 41997199 M51.36 Lumbosacra l radiculopathy 5374629 M54.17 Health Concerns Section Related Observation LastModified by Organization Detai ls LastModified Time None Recorded Concern Status LastModified by Organization Details LastModified Time None Recorded Advance Directives Directive None Recorded Payers Insurance Date Sequence Insurance Name Policy Number Policy Pittman Covered Member ID Pittman Member ID Guarantor Name 09/02/2021 1 [facility] [id number] Tarik Beckett [id number] Tarik Beckett
--- OUTSIDE RECORDS SUMMARY | 2025-02-17 10:15 | XMS_ITS | Patient Health Record ---
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 Name Role Phone Yosvany Pena Primary Care Provider [phone] Laura Tipton Unavailable [phone] Allergies Allergen (clinical drug ingredient) Drug/Non Drug Allergy documented on EMR Reaction Allergy Type Onset Date Status lisinopril Lisinopril Cough Drug Allergy Activ e Results Component Value Reference Range Notes PDF Report Reviewed date:03/26/2024 06:09:18 PM Interpretation: Performing Lab:[facility], [address] [facility], [place], Phone - [phone], Director - Renuka Notes/Report: Beta Strep Gp A Culture-[id number] 69 Reviewed date:08/23/2024 02:31:57 PM Interpretation: Performing Lab:[facility], [address] [facility], [address], [place], Phone - [phone], Director - [facility] Notes/Report: Beta Strep Gp A Culture Negative Refe rence Range: Negative Chest 2 Views Frontal and La t [...] There is no acute cardiopulmonary disease. WSN: [id number] Ordering Physician: Yosvany Pena Dictated By: Catie Ward MD Urinalysis, Complete-[id number] Reviewed date:03/26/2024 06:09:18 PM Interpretation: [facility]forming [facility], [address] [place] [address], Phone - [phone], Director - Renuka Notes/Report: Specific [place] 1.022 1.005-1.030 pH 5.5 5.0-7.5 Urine-Color Yellow [...] None seen None seen/Few CBC With Differential/Platel et-192395 Reviewed date:03/26/2024 06:09:18 PM Interpretation: [facility]forming [facility], [address] [place] [address], [place], Phone - [phone], Director - Renuka Notes/Report: WBC 6.3 3.4-10.8 x10E3/uL RBC 5.07 [...] Immature Grans (Abs) 0.0 0.0-0.1 x10E3/uL Prostate-Specific Ag-046400 Reviewed date:03/26/2024 06:09:18 PM Interpretation: Performing Lab:[facility] [place], [address] [facility], Phone - [phone], Director - [facility] Notes/Report: Prostate Specific Ag <0.1 0.0-4.0 ng/mL Lindsey [employer] methodology. . According to the [place] [employer], Serum PSA should decrease and [...] or absence of malignant disease. Vitamin D, 44-Jnrclso-789859 Reviewed date:03/26/2024 06:09:18 PM Interpretation: Performing Lab:[facility] [place], [address] [place] [address], [place], Phone - [phone], Director - [facility] Notes/Report: Vitamin D, 25-Hydroxy 33.2 30.0-100.0 ng/mL Vitamin D deficiency has been defined by the Butler of Medicine and an Endocrine Society practice guideline as a level of serum 25-OH vitamin D less than 20 ng/mL (1,2). The Endocrine Society went on to further define vitamin D insufficiency as a level between 21 and 29 ng/mL (2). 1. IOM (Butler of Medicine). 2010. Dietary reference intakes for calcium and D. [place]: The National Academies Press. 2. Rema MF, Osmar NC, Lisa CHERRY, et al. Evaluation, treatment, and prevention of vitamin D deficiency: an Endocrine Society clinical practice guideline. JCEM. 2010; 96(7):1911-30. Albumin/Creatinine Ratio,Uri ne-960859 Reviewed date:03/26/2024 06:09:18 PM Interpretation: Performing Lab:[facility] [place], [address] [facility], Phone - [phone], Director - Renuka Notes/Report: Creatinine, Urine 205.5 Not Estab. mg/dL Albumin, Urine 6.7 Not Estab. ug/mL Alb/Creat Ratio 3 0-29 mg/g creat Normal: 0 - 29 Moderately increased: 30 - 300 Severely increased: >300 Comp. Metabolic Panel (14)-3 Reviewed date:03/26/2024 06:09:18 PM Interpretation: Performing Lab:[facility] [place], [address] [facility], Phone - [phone], Director - Renuka Notes/Report: Glucose 91 70-99 [...] 0-40 IU/L ALT (SGPT) 22 0-44 IU/L LP+Non-HDL Cholesterol-85126 5 Reviewed date:03/26/2024 06:09:18 PM Interpretation: Performing Lab:[facility] [place], [address] [facility], [place], Phone - [phone], Director - Carlosy Notes/Report: Cholesterol, Total 170 100-199 mg/dL Triglycerides 169 0-149 mg/dL HDL Cholesterol 44 >39 mg/dL VLDL Cholesterol Lamberto 29 5-40 mg/dL LDL Chol Calc (NIH) 97 0-99 mg/dL Non-HDL Cholesterol 126 0-129 mg/dL HCV Antibody-[id number] Reviewed date:03/26/2024 06:09:18 PM Interpretation: Performing Lab:[facility] [place], [address] [facility], Phone - [phone], Director - Renuka Notes/Report: Hep C Virus Ab Non Reactive Non Reactive HCV antibody alone does not differentiate between previously resolved infection and active infection. Equivocal and Reactive HCV antibody results should be followed up with an HCV RNA test to support the diagnosis of active HCV infection. EBCT Coronary calcium score Reviewed date:07/22/2024 01:15:48 PM Interpretation: Performing Lab: Notes/Report: CR Chest Routine 2 Views Reviewed date:08/14/2024 03:49:28 PM Interpretation: Performing Lab: Notes/Report: Respiratory Panel w/ SARS-Co [id number] Reviewed date:09/08/2024 07:36:12 PM Interpretation: Performing Lab:[facility] [place], [address] [place] [address], Phone - [phone], Director - Renuka Notes/Report: Adenovirus Not Detected Not [...] Detected Mycoplasma pneumoniae Not Detected Not Detected Uric Acid-804870 Reviewed date:09/05/2024 10:19:01 AM Interpretation: Performing Lab:[facility] [place], [address] [place] [address], Phone - [phone], Director - Renuka Notes/Report: Uric Acid 6.7 3.8-8.4 mg/dL Therapeutic ta rget for gout patients: <6.0 Urinalysis, Complete-425786 Reviewed date:09/05/2024 10:19:02 AM Interpretation: Performing Lab:[facility] [address], Phone - [phone], Director - Renuka Notes/Report: Specific [place] 1.020 1.005-1.030 pH 5.5 5.0-7.5 Urine-Color Yellow [...] Bacteria None seen None seen/Few Vitamin D, 59-Bgyxmwq-436141 Reviewed date:09/05/2024 10:19:02 AM Interpretation: Performing Lab:[facility] [address], Phone - [phone], Director - Renuka Notes/Report: Vitamin D, 25-Hydroxy 34.0 30.0-100.0 ng/mL Vitamin D deficiency has been defined by the Butler of Medicine and an Endocrine Society practice guideline as a level of serum 25-OH vitamin D less than 20 ng/mL (1,2). The Endocrine Society went on to further define vitamin D insufficiency as a level between 21 and 29 ng/mL (2). 1. IOM (Butler of Medicine). 2010. Dietary reference intakes for calcium and D. [place]: The National Academies Press. 2. Rema MF, Osmar NC, Lisa CHERRY, et al. Evaluation, treatment, and prevention of vitamin D deficiency: an Endocrine Society clinical practice guideline. JCEM. 2010; 96(7):1911-30. Albumin/Creatinine Ratio,Uri ne-346783 Reviewed date:09/05/2024 10:19:02 AM Interpretation: Performing Lab:[facility] [address], Phone - [phone], Director - Renuka Notes/Report: Creatinine, Urine 203.7 Not Estab. mg/dL Albumin, Urine 9.1 Not Estab. ug/mL Alb/Creat Ratio 4 0-29 mg/g creat Normal: 0 - 29 Moderately increased: 30 - 300 Severely increased: >300 Comp. Metabolic Panel (14)-3 86156 Reviewed date:09/05/2024 10:19:02 AM Interpretation: Performing Lab:[facility] [place], [address] [facility], Phone - [phone], Director - [facility] Notes/Report: Glucose 105 70-99 mg/dL BUN 15 [...] IU/L ALT (SGPT) 26 0-44 IU/L LP+Non-HDL Cholesterol-61522 5 Reviewed date:09/05/2024 10:19:03 AM Interpretation: Performing Lab:[facility] [place], [address] [facility], Phone - [phone], Director - Renuka Notes/Report: Cholesterol, Total 162 100-199 mg/dL Triglycerides 210 0-149 mg/dL HDL Cholesterol 43 >39 mg/dL VLDL Cholesterol Lamberto 35 5-40 mg/dL LDL Chol Calc ([facility]) 84 0-99 mg/dL Non-HDL Cholesterol 119 0-129 mg/dL Reason For Referral No Information Medications Medication [...] Vaccine Route Administration Date Status Comme nts Influenza, seasonal, injectable, preservative free, 4 yrs [...] 4 yrs and above Unknown 05/30/2017 Administered Ufgiqojcu-9406-48 Afluria-Single Unknown 05/10/2018 Administered ESBRI-77-Enwvns Vaccine Unknown 09/28/2020 Administered FHUEK-82-Lhdnaz Vaccine Unknown 10/19/2020 Administered UXJLZ-25-Ohlkvk Vaccine Unknown 06/26/2021 Administered COVID Spikevax Moderna Unknown 03/28/2024 Administered COVID COMIRNATY Pfizer Unknown 05/31/2023 Administered COVID 19 (Pfizer 12+) Unknown 10/30/2021 Administered *Tdap Unknown 02/12/2010 Administered *PREVNAR 20 IM Intramuscular 03/13/2024 Administered *Influenza-Quadrivalent IM Intramuscular 05/25/2023 Admini stered *Dalcazpnt-Pqogqox-Ufqy Dose-65+ Unknown 03/28/2024 Administered *Influenza, High Dose Seasonal, Quadrivatent Unknown 05/05/2022 Administered Influenza-Afluria (IIV4) Unknown 06/24/2019 Administere d [...] Location Date Provider Diagnosis Yosvany Pena MD [address] [id number] 03/13/2024 Yosvayn Pena Encounter for genera l adult medical [...] of external hearing-aid Z97.4 Yosvany Pena MD [address] [id number] 04/02/2024 Laura Tipton Hypertensive chronic kidney disease with stage 1 through stage 4 chronic kidney disease, or unspecified chronic kidney disease I12.9 and Chronic kidney disease, stage 2 (mild) N18.2 Yosvany Pena MD [address] [id number] 04/10/2024 Yosvany Pena Hypertensive chronic kidney disease with stage 1 through stage 4 chronic kidney disease, or unspecified chronic kidney disease I12.9 Yosvany Pena MD [address] [id number] 08/20/2024 Yosvany Pena Acute pharyngitis, unspecified J02.9 Yosvany Pena MD [address] [id number] 09/02/2024 Yosvany Pena Hypertensive chronic kidney disease [...] D deficiency, unspecified E55.9 Yosvany Pena MD [address] [id number] 09/05/2024 Yosvany Pena Acute upper respirat ory infection, unspecified J06.9 Yosvany Pena MD [address] [id number] 04/01/2024 Yosvany Pena MD [address] [id number] 08/06/2024 Yosvany Pena MD [address] [id number] 08/13/2024 Yosvany Pena COVID19 CHACE-Virus Identified U07.1 Yosvany Pena MD [address] [place], [place] [id number] 08/13/2024 Yosvany Pena MD [address] [place] [address], [place] [id number] 08/22/2024 Yosvany Pena MD [address] [place] [address], [place] [id number] 08/23/2024 Yosvany Pena MD [address] [place] [address], [place] [id number] 09/04/2024 Yosvany Pena MD [address] [place] [address], [place] [id number] 09/05/2024 Yosvany Pena MD [address] [place] [address], [place] [id number] 09/06/2024 Yosvany Pena MD [address] [place] [address], [place] [id number] 09/08/2024 Yosvany Pena MD [address] [place] [id number] 04/02/2024 Yosvany Pena MD [address] [place] [id number] 04/10/2024 Yosvany Pena MD [address] [place] [id number] 08/13/2024 Yosvany Pena MD [address] [place] [id number] 08/18/2024 Yosvany Pena MD [address] [place] [id number] 08/19/2024 Yosvany Pena MD [address] [place] [id number] 08/20/2024 Yosvany Pena MD [address] [facility] [facility] [place] [id number] 10/28/2024 Yosvany Pena MD [address] [facility] [address] [place] [id number] 10/28/2024 Yosvany Pena Assessments Encounter Date Diagnosis (ICD Code) Assessment Notes Treatment Notes Treatment Clinical Notes Section Notes 03/13/2024 Hypertensive chronic kidney disease with stage 1 through stage 4 chronic kidney disease, or unspecified chronic kidney disease (ICD-10 - I12.9) Stable at present. Continue current medical therapy 03/13/2024 Encounter for general adult medical examination without abnormal findings (ICD-10 - Z00.00) General healthcare up-to-date. Check routine labs. Await completion of healthcare proxy and MOST form. He is reminded to complete this. 04/02/2024 Hypertensive chronic kidney disease with stage [...] in medical therapy indicated at present time 08/13/2024 COVID19 CHACE-Virus Identified (ICD-10 - U07.1) 08/20/2024 Acute pharyngitis, unspecified (ICD-10 - J02.9) [...] control of comorbidity of hypertension. Recheck status 09/05/2024 Acute upper respiratory infection, unspecified (ICD-10 - J06.9) 09/02/2024 Gastro-esophageal reflux disease without esophagitis (ICD-10 - K21.9) Symptomatically stable. 03/13/2024 Chronic kidney disease, stage 2 (mild) (ICD-10 - N18.2) Stable with estimated GFR in the high 70s. Continue control of comorbidity of hypertension 03/13/2024 Gastro-esophageal reflux disease without esophagitis (ICD-10 - K21.9) Symptomatically stable. 09/02/2024 Body mass index [BMI] 35.0-35.9, adult (ICD-10 - Z68.35) Stable at present. Continue exercise such as walking 09/02/2024 Morbid (severe) obesity due to excess calories (ICD-10 - E66.01) Continue to encourage diet and exercise and weight loss 03/13/2024 Body mass index [BMI] 35.0-35.9, adult (ICD-10 - Z68.35) Stable at present. Continue exercise such as walking 03/13/2024 Morbid (severe) obesity due to excess calories (ICD-10 - E66.01) Continue to encourage diet and exercise and weight loss 09/02/2024 Generalized anxiety disorder (ICD-10 - F41.1) Stable with current medical therapy 09/02/2024 Obstructive sleep apnea (adult) (pediatric) (ICD-10 - G47.33) Stable at present. He continues to use CPAP with benefit. He also sleeps in a recliner because his shoulder feels better when he does so. 03/13/2024 Generalized anxiety disorder (ICD-10 - F41.1) Controlled with current medical therapy 03/13/2024 Obstructive sleep apnea (adult) (pediatric) (ICD-10 - G47.33) Continues to use CPAP with benefit 09/02/2024 Mixed hyperlipidemia (ICD-10 - E78.2) Stable at present. His calculated cardiovascular risk 7.8%. He may benefit from changing his statin therapy for lower rate of progression as he ages. 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 Can recheck uric acid 03/13/2024 Mixed hyperlipidemia (ICD-10 - E78.2) Stable on recent labs as reviewed. His calculated risk is slightly elevated at 10.8%. Recommend coronary artery calcium score for further risk assessment and validation. If his risk is higher than he would benefit from more aggressive risk modification 03/13/2024 Family history of malignant neoplasm of digestive organs (ICD-10 - Z80.0) Up-to-date on colonoscopy 09/02/2024 Vitamin D deficiency, unspecified (ICD-10 - E55.9) Stable on prior labs as reviewed. Recheck status and would consider supplementation for goal level of 30+ if possible 50+ 03/13/2024 Personal history of colonic polyps (ICD-10 [...] may contain errors of grammar and syntax. 09/02/2024 Other This note was created with voice dictation recognition software and may contain errors of grammar and syntax. Also labs were reviewed with patient. Plan Of Treatment Pending Test Test Name Order Date X ray : Chest with 2 views 08/24/2022 25OH VITAMIN D 02/23/2023 25OH VITAMIN D 02/21/2022 25OH VITAMIN D 02/07/2019 25OH VITAMIN D 02/03/2021 25OH VITAMIN D 08/09/2017 25OH VITAMIN D 08/09/2021 COMPLETE CBC WITH DIFF 08/09/2021 COMPLETE CBC WITH DIFF 08/09/2017 COMPLETE CBC WITH DIFF 02/03/2021 COMPLETE CBC WITH DIFF 02/07/2019 COMPLETE CBC WITH DIFF 02/21/2022 COMPLETE URINALYSIS 02/21/2022 COMPLETE URINALYSIS 02/23/2023 COMPLETE URINALYSIS 02/07/2019 COMPLETE URINALYSIS 02/03/2021 COMPLETE URINALYSIS 08/09/2017 COMPLETE URINALYSIS 08/09/2021 COMPREHENSIVE METABOLIC PANEL 08/09/2021 COMPREHENSIVE METABOLIC PANEL 02/23/2023 COMPREHENSIVE METABOLIC PANEL 02/07/2019 COMPREHENSIVE METABOLIC PANEL 02/03/2021 COMPREHENSIVE METABOLIC PANEL 08/09/2017 COMPREHENSIVE METABOLIC PANEL 02/21/2022 FERRITIN 08/09/2017 IMMUNOFIXATION SERUM 08/09/2017 LDH 08/09/2017 LIPID PANEL W REFLEX TO DLDL 02/23/2023 LIPID PANEL W REFLEX TO DLDL 08/09/2021 LIPID PANEL W REFLEX TO DLDL 02/21/2022 LIPID PANEL W REFLEX TO DLDL 08/09/2017 LIPID PANEL W REFLEX TO DLDL 02/07/2019 LIPID PANEL W REFLEX TO DLDL 02/03/2021 MAGNESIUM 02/07/2019 PSA 02/03/2021 PSA 02/21/2022 PSA 08/09/2021 RETICULOCYTE COUNT 08/09/2017 URIC ACID 08/09/2021 URIC ACID 02/23/2023 URIC ACID 02/21/2022 URIC ACID 02/03/2021 URINARY MICROALBUMIN 02/03/2021 VITAMIN B12 08/09/2017 CBC 06/03/2021 COMPREHENSIVE METABOLIC PANEL 06/03/2021 ESR 06/03/2021 FOLATE 08/09/2017 URIC ACID 06/03/2021 ANTI-HEPATITIS C W/RFLX HCV QNT 02/22/20 22 MMR (MEASLES, MUMPS, RUBELLA) IGG TITER 02/03/2021 MMR (MEASLES, MUMPS, RUBELLA) IGG TITER 02/07/2019 COVID and INFLUENZA Rapid Assay 08/08/19 23 Urinalysis, Complete-[id number] 11/22/2023 Albumin/Creatinine Ratio,Urine-[id number] Future Test Test Name Order Date 25OH VITAMIN D 01/22/2024 COMPLETE CBC WITH DIFF 01/22/2024 COMPLETE URINALYSIS 01/22/2024 COMPREHENSIVE METABOLIC PANEL 01/22/2024 LIPID PANEL W REFLEX TO DLDL 01/22/2024 PSA 01/22/2024 URIC ACID 01/22/2024 ANTI-HEPATITIS C W/RFLX HCV QNT 01/22/20 24 Next Appt Details Provider Name:Yosvany Pena , 03/25/2025 11:00:00 AM, [address] [place] [address], [address], [place], [place], [phone], Insurance Providers Payer Name Payer Address Payer Phone Subscriber Number Group Number Insured Name Patient Relationship to Insured Coverage Start Date Coverage End Date [employer] MEDICARE PPO BLUE [address] [place] [address] [id number] Tarik Beckett Self - patient is the [...]
== END 2025-02-17 09:25 | disposition home or self-care (01) ==
LOC: HO.HMGCX 09:24
PROVIDERS: PCP Internal Medicine; Visit Provider Internal Medicine Rheumatology
DX: M25.561 Pain in right knee (principal)
CPT/HCPCS: 73560

== ENCOUNTER → 2025-02-17 09:30 | Outpatient (BNV) | payer BC, SELFPAY | PROVIDERS: PCP Internal Medicine; Visit Provider Radiology Diagnostic Radiology | DX: M11.261 Other chondrocalcinosis, right knee (principal) | CPT/HCPCS: 73560 ==

== ENCOUNTER 2025-06-18 08:54 | Outpatient (AMB) | payer BC, SELFPAY ==
--- OUTSIDE RECORDS SUMMARY | 2024-08-13 06:30 | XMS_ITS ---
Author Organization Yosvany Pena MD Address [address] [place] [phone] Care Team Providers Care Core Dropper Name Role Phone Yosvany Pena Primary Care Provider Laura Tipton Unavailable [phone] REASON FOR VISIT Cough (pending covid) Social History Sex Assigned At : Social History Observation Description Sex Assigned At Male Encounters Encounter Location Date Provider Diagnosis Yosvany Pena MD [address] [phone] 08/13/2024 Laura Tipton Plan Of Treatment Next Appt Details Provider Name:Yosvany Pena , 09/22/2025 09:45:00 AM, [address] [place] [address], [id number], Provider Name:Yosvany Pena , 04/07/2026 10:30:00 AM, [address] [place] [address], [phone], Progress Notes * Tarik AGUILAR FDOB:1955 (70 yo M)Acc No.[id number]:08/13/2024 Progress Notes Patient: Tarik LEVY Appointment Provider: Kvgn Tipton DNP :1955 A ge:69 Y S ex:Male Date:08/13/2024 Address:[address] [place], [place] [id number] Pcp:Yosvany Pena Subjective: * Chief Complaints: * 1 . Cough (pending covid). * Medical History: Objective: * Vitals: Past Vitals:* 04/10/2024 Temp:96.5F, HR:75/min, BP:Si tting Right Arm: 134/72mm Hg, Wt:257lbs, BMI:36.87Index, Ht:70in, Oxygen sat %:96% * 04/02/2024 Temp:96.8F, HR:62/min, BP: R emote Blood Pressure Monitor:159/95 mm Hg,Sitting Left Arm:148/88mm Hg, Wt:256.6lbs, BMI:36.81Index, Ht:70in, Oxygen sat %:98% * 03/13/2024 Temp:96.2F, HR:82/min, BP:Si tting Right Arm: 120/70mm Hg, Wt:250.8lbs, BMI:35.98Index, Ht:70in, Oxygen sat %:98% Assessment: Plan: * Treatment: * Images: Billing Information: * Visit Code: * Procedure Codes: * Electronic signature of Bree Tipton DNP on 06/18/2025 at 09:28 AM EST Sign off status: Pending * Appointment Provider: Kvng Tipton DNP Date: 0 08/13/2024 Generated for Shannan milligan/Aubrey/Lalit on: 08/18/2024 09:28 AM EST
[2025-06-18 08:56] VITALS: BP 100/80; PULSE 80; O2SAT 95; BMI 34.4
--- NOTE | 2025-06-18 08:56 | A.OFFVIS_ITS ---
Vital Signs 06/18/25 08:56 Height 6 ft Weight 253 lb 4.978 oz BMI 34.4 BP 100/80 Blood Pressure Location Lt brachial Position Sitting Pulse 80 Pulse Source Pulse Oximeter Pulse Oximetry (%) 95 Oxygen Delivery Method Room Air Intake Visit Reasons: 3 Months Intake Note: Patient presents for an oa follow up Accompanied by: Self / Same As Patient Allergies lisinopril Adverse Reaction (Mild, Verified 06/18/25 09:02) Throat issues HPI HPI 3 Months: Details: Completed PT. Initially PT was helping overall but he continued to have knee pain with driving. He then fell off of a ladder and injured his shoulder. 2 month hx of bilateral shoulder pain. Hard to move shoulders up. His main pain is now his shoulders. He is having difficulties with ADLs. He is in the process of getting a PET scan for evaluation of amlodyosis/ Alzheimer's workup. 8 lb weight loss since last visit. Take ibuprofen PRN Physical Exam Vital Signs: Last Vital Signs Pulse 80 06/18/25 08:56 BP 100/80 06/18/25 08:56 Pulse Ox 95 06/18/25 08:56 Oxygen Delivery Method Room Air 06/18/25 08:56 BMI result Body Mass Index 34.4 Const Other: General: Comfortable Skin: No lesions seen MSK: Tender to palpate bilateral shoulder. Right shoulder range of motion is normal. Left shoulder abduction is 100 degrees with limited active and passive internal and external rotation. No tender joint line. Right knee Whitney's cyst palpated. Normal range of motion of bilateral knees. Right knee negative anterior and posterior drawer sign. Assessment & Plan Assessment & Plan (1) Osteoarthritis of right knee: Comment: uncontrolled. Failed PT. Code(s): M17.11 - Unilateral primary osteoarthritis, right knee Category: Medical Plan: Start NSAID If he does not find relief with NSAID, I will consider right knee cortisone injection next visit Return to clinic in 3 months (2) Adhesive capsulitis of left shoulder: Comment: Suspected. Code(s): M75.02 - Adhesive capsulitis of left shoulder Category: Medical Plan: PT ordered Start NSAID X-ray ordered If he is unable to progress with physical therapy or fails physical therapy, he will call office for an appointment for left shoulder cortisone injection Return to clinic in 3 months (3) Bilateral shoulder pain: Comment: Left worse than right limiting range of motion. Code(s): M25.511 - Pain in right shoulder; M25.512 - Pain in left shoulder Category: Medical Plan: Bilateral x-rays orders to determine extent of osteoarthritis contributing to his pain and limited range of motion See above Orders: Orders Creatinine 06/18/25 Z79.899 - Other assisted (current) drug therapy PT Evaluation and Treatment 06/18/25 M25.511 - Pain in right shoulder, M25.512 - Pain in left shoulder, M75.02 - Adhesive capsulitis of left shoulder XR Shoulder Pon[place] min 2V 06/18/25 M25.511 - Pain in right shoulder, M25.512 - Pain in left shoulder, M75.02 - Adhesive capsulitis of left shoulder Alanine Aminotransferase 06/18/25 Z79.899 - Other long term care administrator (current) drug therapy Aspartate Amino Transferase 06/18/25 Z79.899 - Other assisted (current) drug therapy Coding Level of Care Code Complex visit Add On G2211 Diagnoses Osteoarthritis of right knee M17.11 Adhesive capsulitis of left shoulder M75.02 Bilateral shoulder pain M25.511; M25.512
--- OUTSIDE RECORDS SUMMARY | 2025-06-18 09:28 | XMS_ITS | Data Portability ---
Author Organization [facility] Address [address] [place] [address] Care Team Providers Care Roll Finisher Name Role Phone LO GRACIA Primary Care Provider Assessment Encounter Date Assessment [...] call for an appointment. 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 [email or web address] Not available 08/10/2021 13:59:13 Reason for Referral None Reported. Problems Name Problem SNOMED Code Status Onset Date Resolution Date Notes Provider Name and Address Organization Details Recorded Time Degeneration of lumbar intervertebral disc 18225709 Active Driss gallegos MD [email or web address] [facility] , [address], [place], [address], [place] [facility] 09:40:37 Lumbosacral radiculopathy 3524319 Active Driss gallegos MD [address] [facility] , [address], [place], [address], [place] [facility] 13:27:52 Problem Notes None recorded. Procedures Surgical History Date Name Laterality Status Provider Name and Address Organization Details Recorded Time Tonsillectomy completed Driss Nava MD [address] , [address], [place], [address], [place] [facility] 08/06/2021 09:45:46 Hernia Repair completed Driss Nava MD [address] , [address], [place], [address], [place] [facility] 08/06/2021 09:46:21 Prostate Surgery completed Driss Nava MD [address] , [address], [place], [address], [place] [facility] 08/06/2021 09:46:35 Knee arthroscopy/surger y completed Driss Nava MD [address] , [address], [place], [address], [place] [facility] 08/06/2021 09:46:52 Imaging Results None recorded. Procedure Notes None recorded. Medical Equipment None Reported. Allergies Allergen ID Allergen Name Allergen Category Reaction Reaction Severity Criticality Documentation Date Start Date Code Code System Note Provider Name and Address Organization Details Recorded Time 54384 lisinopri l medicatio n cough Not available Not available 08/06/2021 58190 RxNorm Driss gallegos MD [address] [facility] , [address], [place], [address], [place] [facility] [...] (BMI) Body weight Heart rate Oxygen saturation Pain severity - 0-10 verbal numeric rating [Score] - Reported Systolic And Diastolic Provider Name and Address Organization Details Last Updated DateTime 2 182.88 cm 35.3 kg/m2 906289. 02 g 73 /min 96 % 1 164/88 mm[Hg] Driss gallegos MD [email or web address] [facility] , [address], [place], [address], [place] [facility] 2 09:27:58 Social History Question Answer Notes LastModified by Organizat ion Details LastModified Time Tobacco Smoking Status Never Smoker Driss Nava MD [email or web address] [facility] , [address], [place], [address], [place] [facility] 08/06/2021 09:42:47 [...] Or The Highest Degree You Have Received? [id number] Information not available 08/06/2021 Do You Have [...] not available 08/06/2021 What is your occupation? [employer] Information not available 08/06/2021 Do you have [...] Diagnosis SNOMED-CT Code Diagnosis ICD10 Code Diagnosis IMO Codes Diagnosis Note [id number] Driss Nava MD PAIN OFFICE [address] [place] [address] [address] [place] [address] 08/06/2021 08:52:28 08/10/2021 14:01:19 Degeneration of lumbar intervertebral disc 57800027 M51.36 Lumbosacra l radiculopathy 2558725 M54.17 Health Concerns Section Related Observation LastModified by Organization Detai ls LastModified Time None Recorded Concern Status LastModified by Organization Details LastModified Time None Recorded Advance Directives Directive None Recorded Payers Insurance Date Sequence Insurance Name Policy Number Policy [place] Covered Member ID [place] Member ID Guarantor Name 09/02/2021 1 [facility] [id number] Tarik Beckett [id number] Tarik Beckett Notes Date Note Type [...] He was having left knee swelling around Thanksgiving 2020 .He had no improvement with ice and [...] recess and neuroforaminal encroachments Driss Nava MD [address] [place] [address] , [address], [place], [address], [place] [facility] 08/11/2021 16:08:54
--- OUTSIDE RECORDS SUMMARY | 2025-06-18 09:28 | XMS_ITS | Patient Health Record ---
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 Name Role Phone [facility] Primary Care Provider Laura Tipton Unavailable [phone] Allergies Allergen (clinical drug ingredient) Drug/Non Drug Allergy documented on EMR Reaction Allergy Type Onset Date Status lisinopril Lisinopril Cough Drug Allergy Activ e Results Component Value Reference Range Notes Urinalysis, Complete-[id number] Reviewed date:06/10/2025 01:02:15 PM Interpretation: Performing Lab:[facility], [address] [place] [address], [facility], Phone - [phone], Director - Renuka Notes/Report: Specific [place] 1.029 1.005-1.030 pH 5.5 5.0-7.5 Urine-Color Yellow Yellow Appearance Clear Clear WBC Esterase Trace Negative Protein Trace Negative/Trace Glucose Negative Negative Ketones Trace Negative Occult Blood Negative Negative Bilirubin Negative Negative Urobilinogen,Semi-Qn 0.2 0.2-1.0 mg/dL Nitrite, Urine Negative Negative Microscopic Examination See below: Micr oscopic was indicated and was performed. WBC None seen 0 - 5 /hpf RBC 0-2 0 - 2 /hpf Epithelial Cells (non renal) 0-10 0 - 10 /hpf Casts None seen None seen /lpf Bacteria None seen None seen/Few CBC With Differential/Platel et-[id number] Reviewed date:06/10/2025 01:02:15 PM Interpretation: Performing Lab:[facility], [address] [facility], Phone - [phone], Director - [facility] Notes/Report: WBC 7.3 3.4-10.8 x10E3/uL RBC 4.99 4.14-5.80 x10E6/uL Hemoglobin 13.4 13.0-17.7 g/dL Hematocrit 41.1 37.5-51.0 % MCV 82 79-97 fL MCH 26.9 26.6-33.0 pg MCHC 32.6 31.5-35.7 g/dL RDW 15.6 11.6-15.4 % Platelets 236 150-450 x10E3/uL Neutrophils 69 Not Estab. % Lymphs 19 Not Estab. % Monocytes 9 Not Estab. % Eos 2 Not Estab. % Basos 1 Not Estab. % Neutrophils (Absolute) 5.0 1.4-7.0 x10E3/uL Lymphs (Absolute) 1.4 0.7-3.1 x10E3/uL Monocytes(Absolute) 0.7 0.1-0.9 x10E3/uL Eos (Absolute) 0.1 0.0-0.4 x10E3/uL Baso (Absolute) 0.0 0.0-0.2 x10E3/uL Immature Granulocytes 0 Not Estab. % Immature Grans (Abs) 0.0 0.0-0.1 x10E3/uL Prostate-Specific Ag-[id number] Reviewed date:06/10/2025 01:02:15 PM Interpretation: Performing Lab:[facility], [address] [facility], Phone - [phone], [facility] Notes/Report: Prostate Specific Ag <0.1 0.0-4.0 ng/mL Lindsey ECLIA methodology. . According to the [place] [employer], Serum PSA should decrease and [...] or absence of malignant disease. Vitamin D, 16-Wblydau-[id number] Reviewed date:06/10/2025 01:02:15 PM Interpretation: Performing Lab:[facility], [address] [facility], [facility], Phone - [phone], Director - Renuka Notes/Report: Vitamin D, 25-Hydroxy 31.1 30.0-100.0 ng/mL Vitamin D deficiency has been defined by the [place] [employer] and an Endocrine Society practice guideline as a level of serum 25-OH vitamin D less than 20 ng/mL (1,2). The Endocrine Society went on to further define vitamin D insufficiency as a level between 21 and 29 ng/mL (2). 1. IOM ([place] [employer]). 2010. Dietary reference intakes for calcium and D. [place]: The National Academies Press. 2. Rema MF, Osmar SUGGS, Lisa CHERRY, et al. Evaluation, treatment, and prevention of vitamin D deficiency: an Endocrine Society clinical practice guideline. JCEM. 2010; 96(7):1911-30. Comp. Metabolic Panel (14)-3 55047 Reviewed date:06/10/2025 01:02:15 PM Interpretation: Performing Lab:[facility], [address] [facility], [facility], Phone - [phone], Director - Renuka Notes/Report: Glucose 94 70-99 mg/dL BUN 17 8-27 mg/dL Creatinine 1.00 0.76-1.27 mg/dL eGFR 82 >59 mL/min/1.73 BUN/Creatinine Ratio 17 10-24 Sodium 142 134-144 mmol/L Potassium 4.0 3.5-5.2 mmol/L Chloride 102 96-106 mmol/L Carbon Dioxide, Total 25 20-29 mmol/L Calcium 9.0 8.6-10.2 mg/dL Protein, Total 7.0 6.0-8.5 g/dL Albumin 4.3 3.9-4.9 g/dL Globulin, Total 2.7 1.5-4.5 g/dL Bilirubin, Total 0.5 0.0-1.2 mg/dL Alkaline Phosphatase 78 44-121 IU/L Effective April 07, 2025 Alkaline Phosphatase reference interval will be changing to: Age Male Female 0 - 5 days 47 - 127 47 - 127 6 - 10 days 29 - 242 29 - 242 11 - 20 days 109 - 357 109 - 357 21 - 30 days 94 - 494 94 - 494 1 - 2 months 149 - 539 149 - 539 3 - 6 months 131 - 452 131 - 452 7 - 11 months 117 - 401 117 - 401 12 months - 6 years 158 - 369 158 - 369 7 - 12 years 150 - 409 150 - 409 13 years 156 - 435 78 - 227 14 years 114 - 375 64 - 161 15 years 88 - 279 56 - 134 16 years 74 - 207 51 - 121 17 years 63 - 161 47 - 113 18 - 20 years 51 - 125 42 - 106 21 - 50 years 47 - 123 41 - 116 51 - 80 years 49 - 135 51 - 125 >80 years 48 - 129 48 - 129 AST (SGOT) 29 0-40 IU/L ALT (SGPT) 30 0-44 IU/L LP+Non-HDL Cholesterol-63614 5 Reviewed date:06/10/2025 01:02:15 PM Interpretation: Performing Lab:[facility], [address] [facility], Phone - [phone], Director - MDJoy Notes/Report: Cholesterol, Total 143 100-199 mg/dL Triglycerides 225 0-149 mg/dL HDL Cholesterol 41 >39 mg/dL VLDL Cholesterol Lamberto 37 5-40 mg/dL LDL Chol Calc (NIH) 65 0-99 mg/dL Non-HDL Cholesterol 102 0-129 mg/dL HCV Antibody-[id number] Reviewed date:06/10/2025 01:02:15 PM Interpretation: Performing Lab:[facility], [address] [facility], [employer], Phone - [phone], Director - MDGlenis Notes/Report: Hep C Virus Ab Non Reactive Non Reactive HCV antibody alone does not differentiate between previously resolved infection and active infection. Equivocal and Reactive HCV antibody results should be followed up with an HCV RNA test to support the diagnosis of active HCV infection. Chest 2 Views Frontal and La t [...] There is no acute cardiopulmonary disease. WSN: [id number] Ordering Physician: [facility] Pena Dictated By: Catie Ward MD MR Brain Reviewed date:06/10/2025 01:02:15 PM Interpretation: Performing Lab: Notes/Report: Original Report EXAM: MRI BRAIN WITHOUT CONTRAST CLINICAL INFORMATION: Mild cognitive impairment TECHNICAL INFORMATION: Magnetic resonance imaging of the brain without contrast was performed using multiplanar multisequence protocol. SEDATION: None. COMPARISON: None. INTERPRETATION: Posterior fossa shows no intra- or extra-axial fluid collections or shifts. No region of abnormal long TR prolongation change is seen in the cerebellum or brainstem. Cerebellar tonsils are normally positioned above the foramen magnum. The fourth ventricle is normally patent and midline. There is mild generalized brain volume loss including both mesial temporal lobes. No ventriculomegaly. There are no intra- or extra-axial fluid collections, mass effects or midline shifts. There are scattered subcentimeter regions of nonspecific white matter change that do not involve the corpus callosum. No large territorial infarcts or areas of restricted diffusion. There is single punctate right temporal intraparenchymal focus of susceptibility, nonspecific (axial image 145 series 701). Major intracranial vessels show patent signal voids. Within the limits of technique, extracranial structures are normal. There is 2 x 2.2 cm right upper neck subcutaneous cyst (axial image 55 series 401). There is also 1.2 x 1.2 cm left parietal scalp cyst (axial image 9 series 301). There is left mastoid effusion. CONCLUSION: Nonspecific foci of scattered white matter change likely the result of chronic small vessel ischemia. No large territorial or acute infarcts. No acute intracranial abnormality. Read by: Efren Starr M.D. Reviewed and Electronically Signed by: Efren Starr M.D. Phosphorylated Tau 217 (pTau -217) Reviewed date:06/10/2025 01:02:14 PM Interpretation: Performing Lab:[facility], [address] [place] [address], Phone - [phone], Director - Noah Notes/Report: Test(s) 189733-JEJH Genotyping Result:; [id number]-Wvoxmkrobl Comments was developed and its performance characteristics determined by [employer]. It has not been cleared or approved by the Food and Drug Administration. Test(s) 531211-a-mpi634 was developed and its performance characteristics determined by [employer]. It has not been cleared or approved by the Food and Drug Administration. p-pce234 0.31 0.00-0.18 pg/mL Clinical cutoff value was established using samples from a patient cohort characterized with amyloid PET data. A p-dcq221 value of >0.18 is a reported surrogate marker for beta amyloid pathology, and can be used to facilitate biological identification of Alzheimer's disease (1). p-nmv211 has also been used in clinical trials to monitor patients on anti-amyloid therapy (2,3). Test performed by [employer] chemiluminescent enzyme immunoassay (CLEIA). Values obtained with different methods cannot be used interchangeably. The validated limit of quantification is 0.06 pg/mL. Assay detection limit is 0.03 pg/mL. Footnotes 1. Cam Jean, et al. Diagnostic Accuracy of a Plasma Phosphorylated Tau 217 Immunoassay for Alzheimer Disease Pathology. KRIS neurology (2023). 2. Cam Jean, et al. Differential roles of A42/40, p-mdt931 and p-zyc696 for Alzheimer's trial selection and disease monitoring. Nature medicine 28.12 (2021): 5801-2341. 3. Lilly STINSON, Jordana M, Stephanie SC, et al. Association of [place] Treatment With Exploratory Plasma Biomarkers in Early Symptomatic Alzheimer Disease: A Secondary Analysis of the TRAILBLAZER-ALZ Randomized Clinical Trial . KRIS Neurol. 2021;79(12):6831-0616. TSH-005114 Reviewed date:06/10/2025 01:02:14 PM Interpretation: Performing Lab:[facility], [address], Phone - [phone], Director - Noah Notes/Report: Test(s) 886084-RYNW Genotyping Result:; [id number]-Euqousrkoz Comments was developed and its performance characteristics determined by [employer]. It has not been cleared or approved by the Food and Drug Administration. Test(s) 389542-p-grc580 was developed and its performance characteristics determined by [facility]. It has not been cleared or approved by the Food and Drug Administration. TSH 1.370 0.450-4.500 uIU/mL Vitamin G76-347090 Reviewed date:06/10/2025 01:02:14 PM Interpretation: Performing Lab:[facility], [address] [place] [address], Phone - [phone], Director - [facility] Notes/Report: Test(s) 473437-ZLTK Genotyping Result:; [id number]-Bojsvleunr Comments was developed and its performance characteristics determined by [facility]. It has not been cleared or approved by the Food and Drug Administration. Test(s) 491766-p-ils616 was developed and its performance characteristics determined by [facility]. It has not been cleared or approved by the Food and Drug Administration. Vitamin B12 547 674-9655 pg/mL LP+Non-HDL Cholesterol-06846 5 Reviewed date:09/05/2024 10:19:03 AM Interpretation: Performing Lab:[facility], [address] [facility], Phone - [phone], Director - Renuka Notes/Report: Cholesterol, Total 162 100-199 mg/dL Triglycerides 210 0-149 mg/dL HDL Cholesterol 43 >39 mg/dL VLDL Cholesterol Lamberto 35 5-40 mg/dL LDL Chol Calc ([facility]) 84 0-99 mg/dL Non-HDL Cholesterol 119 0-129 mg/dL Comp. Metabolic Panel (14)-3 10409 Reviewed date:09/05/2024 10:19:02 AM Interpretation: Performing Lab:[facility], [address] [facility], Phone - [phone], Director - Renuka Notes/Report: Glucose 105 70-99 [...] 0-40 IU/L ALT (SGPT) 26 0-44 IU/L Albumin/Creatinine Ratio,Uri ne-646428 Reviewed date:09/05/2024 10:19:02 AM Interpretation: Performing Lab:[facility], [address] [place] [address], Phone - [phone], Director - Renuka Notes/Report: Creatinine, Urine 203.7 Not Estab. mg/dL Albumin, Urine 9.1 Not Estab. ug/mL Alb/Creat Ratio 4 0-29 mg/g creat Normal: 0 - 29 Moderately increased: 30 - 300 Severely increased: >300 Vitamin D, 34-Yhmhjgx-845663 Reviewed date:09/05/2024 10:19:02 AM Interpretation: Performing Lab:[facility], [address] [place] [address], Phone - [phone], Director - Renuka Notes/Report: Vitamin D, 25-Hydroxy 34.0 30.0-100.0 ng/mL Vitamin D deficiency has been defined by the [place] [employer] and an Endocrine Society practice guideline as a level of serum 25-OH vitamin D less than 20 ng/mL (1,2). The Endocrine Society went on to further define vitamin D insufficiency as a level between 21 and 29 ng/mL (2). 1. IOM ([place] [employer]). 2010. Dietary reference intakes for calcium and D. [place]: The National Academies Press. 2. Rema MF, Osmar NC, Lisa CHERRY, et al. Evaluation, treatment, and prevention of vitamin D deficiency: an Endocrine Society clinical practice guideline. JCEM. 2010; 96(7):1911-30. Urinalysis, Complete-869173 Reviewed date:09/05/2024 10:19:02 AM Interpretation: Performing Lab:[facility], [address] [place] [address], Phone - [phone], Director - Renuka Notes/Report: Specific [place] 1.020 1.005-1.030 pH 5.5 5.0-7.5 Urine-Color Yellow [...] seen /lpf Bacteria None seen None seen/Few Uric Acid-088955 Reviewed date:09/05/2024 10:19:01 AM Interpretation: Performing Lab:[facility], [address] [facility], [facility] [employer], Phone - [phone], Director - Renuka Notes/Report: Uric Acid 6.7 3.8-8.4 mg/dL Therapeutic ta rget for gout patients: <6.0 Beta Strep Gp A Culture-0081 69 Reviewed date:08/23/2024 02:31:57 PM Interpretation: Performing Lab:[facility], [address], [address], [place], Phone - [phone], Director - [facility] Notes/Report: Beta Strep Gp A Culture Negative Refe rence Range: Negative CR Chest Routine 2 Views Reviewed date:08/14/2024 03:49:28 PM Interpretation: Performing Lab: Notes/Report: APOE Alzheimer's Disease Ris k Reviewed date:06/10/2025 01:02:14 PM Interpretation: Performing Lab:[facility], [address] [place] [address], Phone - [phone], Director - Noah Notes/Report: Test(s) 709194-AHMN Genotyping Result:; [id number]-Vvpefwbuhi Comments was developed and its performance characteristics determined by [employer]. It has not been cleared or approved by the Food and Drug Administration. Test(s) 823829-e-ofa710 was developed and its performance characteristics determined by [employer]. It has not been cleared or approved by the Food and Drug Administration. APOE Genotyping Result: E3/E4 This individual has the APOE E3/E4 genotype. This result is positive for APOE E4, which is associated with increased risk for late-onset Alzheimer's disease. Results should be interpreted in clinical context. Additional Comments This test cannot predict or rule out the development of Alzheimer's disease in an individual. Genetic counseling is recommended to discuss the potential clinical implications of positive results, as well as recommendations for testing family members. Limitations APOE E2, E3, and E4 are validated for this analysis. The rare APOE E1/E1, E1/E2 are reported as failed results. E2/E4 and E1/E3 genotypes cannot be distinguished by this assay. Molecular-based testing is highly accurate, but as in any laboratory test, rare errors may occur. False positive or false negative results may occur for reasons that include genetic variants, blood transfusions, bone marrow trans- plantation, somatic or tissue-specific mosaicism, mislabeled samples, or erroneous representation of family relationships. Methodology Custom genotyping arrays ([employer].) are used to perform genetic testing for two common variants in the APOE gene: NM_000041.4(APOE):c.388T>C( p.Xja388Mrq)(qi174577) and NM_000041.4(APOE):c.526C>T( p.Fao083Ych)(gq3008). Three common combi- nations of the two variants include: APOE E2(Bhn568,Kkn604); APOE E3(Buq682,Xqk650); and APOE E4 (Cev098,Ygz857). Individuals are interpreted as having one of the following genotypes: E1/E4, E2/E2, E2/E3, E3/E3, E3/E4, and E4/E4, (E2/E4 or E1/E3). The rare allele APOE E1 (Eww234,Bvc989) is not validated in this assay. The E1/E4 genotype, if detected, will be reported. The genotypes E2/E4 and E1/E3 cannot be distinguished in our assay. However, the E1 allele is very rare, making E2/E4 more likely in patients with this indeterminate genotype result. Analytical sensitivity and specificity is greater than 99%. Background Information Alzheimer's disease is a progressive neurodegenerative disorder that affects more than 6.7 million Americans ages 65 and older and is the most common form of dementia in the elderly. Signs and symptoms may include cognitive decline, memory loss, loss of problem-solving skills, and personality changes. Clinical symp- toms appear after 60-65 years in 95% of cases. The development of late-onset disease may be influenced by age, sex, family- history, level of education, history of head trauma, and other factors including cardiovascular risk factors. Approximately 15-20% of late-onset disease may be familial. The APOE gene is a known susceptibility gene for Alzheimer's disease. The APOE gene encodes apolipoprotein E, which has a role in lipid metabolism. APOE has three commom alleles: E2, E3, and E4. The presence of the E4 allele increases the lifetime risk of Alzheimer's disease but is neither necessary nor sufficient for the development of Alzheimer's disease. APOE E2 may have some protective effect against development of late-onset disease (PMID: 77238875). APOE also has a rare allele: E1 (legacy name E3r). There is insufficient evidence to assess the clinical association of APOE E1 with Alzheimer's disease PMID: 56978309. References 1) David LIAO. Alzheimer Disease Overview. [employer] ([place]). Iker MONROY et al., editors. [facility]: [facility], [place], [place]. Last revised 2014. PMID: 01217862. 2) Molina JS et al. Genetic counseling and testing for Alzheimer disease: Joint Practice guidelines of the [place] [employer] Genetics and the National Society of Genetic Counselors. Sumi in Med 2011;13(3) 597600. PMID: 94283008. 3) Ashli GAMBLE et al. 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 Am J Med Sumi B Neuropsychiatr Sumi. 2006 Dec 26;141B(4):426-7. PMID: 06136305. Result release: Report relea sed under the direction of Carolina Winters, PhD, [facility] Respiratory Panel w/ SARS-Co [id number] Reviewed date:09/08/2024 07:36:12 PM Interpretation: Performing Lab:[facility], [address], [employer], Phone - [phone], Director - Renuka Notes/Report: Adenovirus Not Detected [...] Detected Mycoplasma pneumoniae Not Detected Not Detected Reason For Referral No Information Medications Medication SIG (Take, Route, Frequency, Duration) Notes Start Date End Date Status Valsartan-hydroCHLOROthiazi de 320-25 MG TAKE 1 TABLET DAILY; Duration: 90 Active Multi For Him - Orally Acti ve Omeprazole 20 MG TAKE 1 CAPSULE ONCE A DAY; Duration: 90 Active Rosuvastatin Calcium 20 MG 1 tablet Oral ly Once a day; Duration: 90 days 09/02/2024 Active Sertraline HCl 50 MG TAKE 1 TABLET DAILY ; Duration: 90 Active Immunizations Vaccine Route Administration Date Status Comme nts RSV-Arexby Unknown 06/26/2023 Administered Influenza-Afluria (IIV4) Unknown 06/24/2019 Administere d Influenza-Afluria (IIV4) Unknown 06/01/2020 Administere d Vshruhgva-2350-45 Afluria-Single Unknown 05/10/2018 Administered Influenza, seasonal, injectable, preservative free, 4 [...] 4 yrs and above Unknown 05/30/2017 Administered LVWJZ-99-Hmhlky Vaccine Unknown 09/28/2020 Administered JTBHP-78-Uqupqy Vaccine Unknown 10/19/2020 Administered SMZLC-25-Gfvzbv Vaccine Unknown 06/26/2021 Administered COVID Spikevax Moderna Unknown 03/28/2024 Administered COVID COMIRNATY Pfizer Unknown 05/31/2023 Administered COVID 19 (Pfizer 12+) Unknown 10/30/2021 Administered *Tdap Unknown 02/12/2010 Administered *Td (adult) preservative free Unknown 05/02/2000 Administered *Td (adult) preservative free IM Intramuscular 01/28/2020 Administered *PREVNAR 20 IM Intramuscular 03/13/2024 Administered *Influenza-Quadrivalent IM Intramuscular 05/25/2023 Admini stered *Oxhvofmmq-Khmyegi-Gxlj Dose-65+ Unknown 03/28/2024 Administered *Influenza, High Dose Seasonal, Quadrivatent Unknown 05/05/2022 Administered Social History Tobacco Use: Social History Observation Description Date Details (start date - stop date) Never Smoker NA - NA Sex Assigned At : Social History Observation Description Sex Assigned At Male AUDIT-C (Standard) Question Answer Notes Did you [...] (E66.01) Active confirmed Problem Information temporarily unavailable Other obesity due to excess calories (E66.09) Active confirmed Problem Information temporarily unavailable Mixed [...] Information temporarily unavailable Body mass index [BMI] 36.0-36.9, adult (Z68.36) Active confirmed Problem Information temporarily unavailable Body mass index [BMI] 37.0-37.9, adult (Z68.37) Active confirmed Problem Information temporarily unavailable Mild cognitive impairment of uncertain or unknown etiology (G31.84) Active confirmed Problem Information temporarily unavailable Body [...] Problem resolved confirmed Vital Signs Heart Rate 89 /min 05/27/2025 Temperature 96.3 degrees Fahrenheit 05/27/2025 Blood pressure diastolic 70 mm Hg 05/27/2025 Oximetry 97 % 05/27/2025 Height 70 in 05/27/2025 Blood pressure systolic 122 mm Hg 05/27/2025 Weight 258.6 lbs 05/27/2025 BMI 37.1 kg/m2 05/27/2025 Encounters Encounter Location Date Provider Diagnosis Yosvany Pena MD [address] [id number] 08/20/2024 Yosvany Pena Acute pharyngitis, unspecified J02.9 Yosvany Pena MD [address] [id number] 09/02/2024 Yosvany Pena Hypertensive chronic kidney disease [...] D deficiency, unspecified E55.9 Yosvany Pena MD [address] [id number] 09/05/2024 Yosvany Pena Acute upper respirat ory infection, unspecified J06.9 Yosvany Pena MD [address] [id number] 03/25/2025 Yosvany Pena Hypertensive chronic kidney disease with stage 1 through stage 4 chronic kidney disease, or unspecified chronic kidney disease I12.9 ; Encounter for general adult medical examination without abnormal findings Z00.00 ; Chronic kidney disease, stage 2 (mild) N18.2 ; Gastro-esophageal reflux disease without esophagitis K21.9 ; Generalized anxiety disorder F41.1 ; Obstructive sleep apnea (adult) (pediatric) G47.33 ; Mixed hyperlipidemia E78.2 ; Family history of malignant neoplasm of digestive organs Z80.0 ; Personal history of malignant neoplasm of prostate Z85.46 ; Other obesity due to excess calories E66.09 ; Body mass index [BMI] 36.0-36.9, adult Z68.36 ; Obesity, class 2 E66.812 ; Chronic gout, unspecified, without tophus (tophi) [...] Z11.59 ; Sensorineural hearing loss, bilateral H90.3 ; Presence of external hearing-aid Z97.4 ; Personal history of adenomatous and serrated colon polyps Z86.0101 and Mild cognitive impairment of uncertain or unknown etiology G31.84 Yosvany Pena MD [address] [place] [id number] 05/27/2025 Yosvany Pena Mild cognitive impairment of uncertain or unknown etiology G31.84 Yosvany Pena MD [address] [place] [id number] 08/06/2024 Yosvany Pena MD [address] [id number] 08/13/2024 Yosvany Pena COVID19 CHACE-Virus Identified U07.1 Yosvany Pena MD [address] [place] [address] [id number] 08/13/2024 Yosvany Pena MD [address] [id number] 08/22/2024 Yosvany Pena MD [address] [id number] 08/23/2024 Yosvany Pena MD [address] [id number] 09/04/2024 Yosvany Pena MD [address] [id number] 09/05/2024 Yosvany Pena MD [address] [id number] 09/06/2024 Yosvany Pena MD [address] [id number] 09/08/2024 Yosvany Pena MD [address] [id number] 06/10/2025 Yosvany Pena MD [address] [id number] 08/13/2024 Yosvany Pena MD [address] [id number] 08/18/2024 Yosvany Pena MD [address], [place] [id number] 08/19/2024 Yosvany Pena MD [address], [place] [id number] 08/20/2024 Yosvany Pena MD [address], [place] [id number] 10/28/2024 Yosvany Pena MD [address] [address], [place] [id number] 10/28/2024 Yosvany Pena MD [address], [place] [id number] 05/30/2025 Yosvany Pena MD [address], [place] [id number] 05/30/2025 Yosvany Pena MD [address], [place] [id number] 06/02/2025 Yosvany Pena Assessments Encounter Date Diagnosis (ICD Code) Assessment Notes Treatment Notes Treatment Clinical Notes Section Notes 08/13/2024 COVID19 [facility]-Virus Identified (ICD-10 - U07.1) [...] upper respiratory infection, unspecified (ICD-10 - J06.9) 03/25/2025 Hypertensive chronic kidney disease with stage 1 through stage 4 chronic kidney disease, or unspecified chronic kidney disease (ICD-10 - I12.9) Stable at present. Continue current medical therapy 03/25/2025 Encounter for general adult medical examination without abnormal findings (ICD-10 - Z00.00) General healthcare up-to-date. Check routine labs. Health care proxy and MOLST form package given for review and completion. Counseled on the importance of completing and educated on the content in regards to life support dialysis and feeding tubes. 05/27/2025 Mild cognitive impairment of uncertain or unknown etiology (ICD-10 - G31.84) MOCA performed in office and scored 24/30 which warrants further testing. Recommend labs, Petscan and MRI and he would like to proceed with further testing of reversal and treatable causes of cognitive impairment. 03/25/2025 Chronic kidney disease, stage 2 (mild) (ICD-10 - N18.2) Stable with estimated GFR in the high 70s. Continue control of comorbidity of hypertension 09/02/2024 Gastro-esophageal reflux disease without esophagitis (ICD-10 - K21.9) Symptomatically stable. 09/02/2024 Body mass index [BMI] 35.0-35.9, adult (ICD-10 - Z68.35) Stable at present. Continue exercise such as walking 03/25/2025 Gastro-esophageal reflux disease without esophagitis (ICD-10 - K21.9) Symptomatically stable. 03/25/2025 Generalized anxiety disorder (ICD-10 - F41.1) Controlled with current medical therapy 09/02/2024 Morbid (severe) obesity due to excess calories (ICD-10 - E66.01) Continue to encourage diet and exercise and weight loss 09/02/2024 Generalized anxiety disorder (ICD-10 - F41.1) Stable with current medical therapy 03/25/2025 Obstructive sleep apnea (adult) (pediatric) (ICD-10 - G47.33) Continues to use CPAP with benefit 09/02/2024 Obstructive sleep apnea (adult) (pediatric) (ICD-10 - G47.33) Stable at present. He continues to use CPAP with benefit. He also sleeps in a recliner because his shoulder feels better when he does so. 03/25/2025 Mixed hyperlipidemia (ICD-10 - E78.2) Stable on recent labs as reviewed. His coronary artery calcium score was 36.6 and his CVD 9.70 he would benefit from more aggressive risk modification. 03/25/2025 Family history of malignant neoplasm of digestive organs (ICD-10 - Z80.0) Up-to-date on colonoscopy 09/02/2024 Mixed hyperlipidemia (ICD-10 - E78.2) Stable at present. His calculated cardiovascular risk 7.8%. He may benefit from changing his statin therapy for lower rate of progression as he ages. 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 Can recheck uric acid 03/25/2025 Personal history of malignant neoplasm of prostate (ICD-10 - Z85.46) No evidence of recurrence 03/25/2025 Other obesity due to excess calories (ICD-10 - E66.09) Given his comorbidities he would be considered as having morbid obesity. Recommend exercise and weight loss 09/02/2024 Vitamin D deficiency, unspecified (ICD-10 - E55.9) Stable on prior labs as reviewed. Recheck status and would consider supplementation for goal level of 30+ if possible 50+ 03/25/2025 Body mass index [BMI] 36.0-36.9, adult (ICD-10 - Z68.36) Encourage exercise and weight loss for BMI less than 30. 03/25/2025 Obesity, class 2 (ICD-10 - E66.812) Continue to encourage diet and exercise and weight loss 03/25/2025 Chronic gout, unspecified, without tophus (tophi) (ICD-10 - M1A.9XX0) Stable without any active flares 03/25/2025 Vitamin D deficiency, unspecified (ICD-10 - E55.9) Fair control on prior labs as reviewed. Continue vitamin D supplementation for goal level of 50+ 03/25/2025 Encounter for screening for malignant neoplasm of colon (ICD-10 - Z12.11) Up-to-date on colon cancer screening 03/25/2025 Encounter for screening for malignant neoplasm of prostate (ICD-10 - Z12.5) Can check PSA has prostate cancer screening realizing the limitation of this test as a screening test 03/25/2025 Encounter for screening for cardiovascular disorders (ICD-10 - Z13.6) Blood pressure is stable. Can check for comorbidity of hyperlipidemia and hyperglycemia to further assess risk. 03/25/2025 Encounter for immunization (ICD-10 - Z23) Vaccines updated 03/25/2025 Encounter for antibody response examination (ICD-10 - Z01.84) He would be considered immune to rubeola by virtue of his age 0903/25/2025 Encounter for screening for other viral diseases (ICD-10 - Z11.59) Can screen for hepatitis C as per general recommendation 03/25/2025 Sensorineural hearing loss, bilateral (ICD-10 - H90.3) Stable and unchanged 03/25/2025 Presence of external hearing-aid (ICD-10 - Z97.4) He uses his hearing aids with benefit 03/25/2025 Personal history of adenomatous and serrated colon polyps (ICD-10 - Z86.0101) Up-to-date on colonoscopy 03/25/2025 Mild cognitive impairment of uncertain or unknown etiology (ICD-10 - G31.84) He feels at times he is more forgetful. He scored a 4/5 on mincog. Recommend roro cognitive assessment test to assess status 08/20/2024 Other This note was created with voice dictation recognition software and may contain errors of grammar and syntax. 09/02/2024 Other This note was created with voice dictation recognition software and may contain errors of grammar and syntax. Also labs were reviewed with patient. 03/25/2025 Other 05/27/2025 Other Spent at least 30 min evaluating and assessing and administering MOCA test and answering patients questions Plan Of Treatment Pending Test Test Name Order Date X ray : Chest with 2 views 08/24/2022 25OH VITAMIN D 02/23/2023 25OH VITAMIN D 08/09/2021 25OH VITAMIN D 08/09/2017 25OH VITAMIN D 02/07/2019 25OH VITAMIN D 02/03/2021 25OH VITAMIN D 02/21/2022 COMPLETE CBC WITH DIFF 02/21/2022 COMPLETE CBC WITH DIFF 02/03/2021 COMPLETE CBC WITH DIFF 02/07/2019 COMPLETE CBC WITH DIFF 08/09/2017 COMPLETE CBC WITH DIFF 08/09/2021 COMPLETE URINALYSIS 02/23/2023 COMPLETE URINALYSIS 08/09/2021 COMPLETE URINALYSIS 08/09/2017 COMPLETE URINALYSIS 02/07/2019 COMPLETE URINALYSIS 02/03/2021 COMPLETE URINALYSIS 02/21/2022 COMPREHENSIVE METABOLIC PANEL 02/21/2022 COMPREHENSIVE METABOLIC PANEL 02/07/2019 COMPREHENSIVE METABOLIC PANEL 08/09/2017 COMPREHENSIVE METABOLIC PANEL 02/23/2023 COMPREHENSIVE METABOLIC PANEL 02/03/2021 COMPREHENSIVE METABOLIC PANEL 08/09/2021 FERRITIN 08/09/2017 IMMUNOFIXATION SERUM 08/09/2017 LDH 08/09/2017 LIPID PANEL W REFLEX TO DLDL 02/07/2019 LIPID PANEL W REFLEX TO DLDL 08/09/2017 LIPID PANEL W REFLEX TO DLDL 02/21/2022 LIPID PANEL W REFLEX TO DLDL 02/03/2021 LIPID PANEL W REFLEX TO DLDL 08/09/2021 LIPID PANEL W REFLEX TO DLDL 02/23/2023 MAGNESIUM 02/07/2019 PSA 02/03/2021 PSA 02/21/2022 PSA 08/09/2021 RETICULOCYTE COUNT 08/09/2017 URIC ACID 02/03/2021 URIC ACID 08/09/2021 URIC ACID 02/21/2022 URIC ACID 02/23/2023 URINARY MICROALBUMIN 02/03/2021 VITAMIN B12 08/09/2017 CBC 06/03/2021 COMPREHENSIVE METABOLIC PANEL 06/03/2021 ESR 06/03/2021 FOLATE 08/09/2017 URIC ACID 06/03/2021 ANTI-HEPATITIS C W/RFLX HCV QNT 02/22/20 22 MMR (MEASLES, MUMPS, RUBELLA) IGG TITER 02/03/2021 MMR (MEASLES, MUMPS, RUBELLA) IGG TITER 02/07/2019 COVID and INFLUENZA Rapid Assay 08/08/19 23 Urinalysis, Complete-[id number] 11/22/2023 Albumin/Creatinine Ratio,Urine-[id number] APOE Alzheimer's Risk-[id number] 05/27/[address], Brain Amyloid 05/27/2025 Future Test Test Name Order Date 25OH VITAMIN D 01/22/2024 COMPLETE CBC WITH DIFF 01/22/2024 COMPLETE URINALYSIS 01/22/2024 COMPREHENSIVE METABOLIC PANEL 01/22/2024 LIPID PANEL W REFLEX TO DLDL 01/22/2024 PSA 01/22/2024 URIC ACID 01/22/2024 ANTI-HEPATITIS C W/RFLX HCV QNT 01/22/20 24 Next Appt Details Provider Name:Yosvany Pena , 09/22/2025 09:45:00 AM, [address] [place] [address], [phone], Provider Name:Yosvany Pena , 04/07/2026 10:30:00 AM, [address] [place] [address], [phone], Insurance Providers Payer Name Payer Address Payer Phone Subscriber Number Group Number Insured Name Patient Relationship to Insured Coverage Start Date Coverage End Date [employer] MEDICARE PPO BLUE [address] [place] [address] [phone] [id number] Tarik Beckett Self - patient is the [...]
== END 2025-06-18 09:47 | disposition home or self-care (01) ==
LOC: HO.RHES 08:55
PROVIDERS: PCP Internal Medicine; Visit Provider Internal Medicine Rheumatology
DX: M17.11 Unilateral primary osteoarthritis, right knee (principal); M75.02 Adhesive capsulitis of left shoulder; M25.511 Pain in right shoulder; M25.512 Pain in left shoulder
CPT/HCPCS: 99213

== ENCOUNTER 2025-06-23 09:56 | Outpatient (REF) | payer MEDICARE, SELFPAY ==
--- NOTE | ~2025-06-23 | XR_ITS ---
EXAMINATION: X-ray bilateral shoulders CLINICAL INFORMATION: Pain COMPARISON: None TECHNIQUE: Right shoulder 3 views. Left shoulder 3 views. FINDINGS: Right shoulder: No acute fracture or dislocation. No suspicious bony lesion. Moderate acromioclavicular arthritis. Subacromial spurring. No significant glenohumeral joint space narrowing. No abnormal soft tissue calcification. Left shoulder: No acute fracture or dislocation. No suspicious bony lesion. Moderate acromioclavicular arthritis. Subacromial spurring. Minimal glenohumeral arthritis. No abnormal soft tissue calcification. XR/XR Shoulder Poncho min 2V IMPRESSION: Right shoulder: Moderate acromioclavicular arthritis Left shoulder: Moderate acromioclavicular arthritis. Electronically signed by: Rigoberto Miller MD 06/23/2025 03:56 PM EST
--- OUTSIDE RECORDS SUMMARY | 2025-06-23 12:03 | XMS_ITS | Data Portability ---
Author Organization [facility] Address [address] [facility],[address] [place] [address] Care Team Providers Care Radar Systems Engineer Name Role Phone LO GARCIA Primary Care Provider [phone] Assessment Encounter Date Assessment Date Assessment LastModified [...] call for an appointment. He needs a tractor driver teamster on the day of the procedure. [email or web address] [...] By Organization Details Last Modified Time 08/06/2021 [id number] He was advised against bed rest lasting longer than four days and to continue activities as tolerated. [email or web address] Not available 08/10/2021 13:59:13 Reason for Referral None Reported. Problems Name Problem SNOMED Code Status Onset Date Resolution Date Notes Provider Name and Address Organization Details Recorded Time Degeneration of lumbar intervertebral disc 55953048 Active Driss gallegos MD [address] [facility] , [address], [place], [address], [place] [facility] 09:40:37 Lumbosacral radiculopathy 2387151 Active Driss gallegos MD [address] [facility] , [address], [place], [address], [place] [facility] 13:27:52 Problem Notes None recorded. Procedures Surgical History Date Name Laterality Status Provider Name and Address Organization Details Recorded Time Tonsillectomy completed Driss Naav MD [address] [facility] , [address], [place], [address], [place] [facility] 08/06/2021 09:45:46 Hernia Repair completed Driss Nava MD [address] [facility] , [address], [place], [address], [place] [facility] 08/06/2021 09:46:21 Prostate Surgery completed Driss Nava MD [address] [facility] , [address], [place], [address], [place] [facility] 08/06/2021 09:46:35 Knee arthroscopy/surger y completed Driss Nava MD [address] [facility] , [address], [place], [address], [place] [facility] 08/06/2021 09:46:52 Imaging Results None recorded. Procedure Notes None recorded. Medical Equipment None Reported. Allergies Allergen ID Allergen Name Allergen Category Reaction Reaction Severity Criticality Documentation Date Start Date Code Code System Note Provider Name and Address Organization Details Recorded Time 02205 lisinopri l medicatio n cough Not available Not available 08/06/2021 46060 RxNorm Driss gallegos MD [address] [facility] , [address], [place], [address], [place] [facility] [...] Updated DateTime 2 182.88 cm 35.3 kg/m2 204964. 02 g 73 /min 96 % 1 164/88 mm[Hg] Driss gallegos MD [address] [facility] , [address], [place], [address], [place] - [facility] 2 09:27:58 Social History Question Answer Notes LastModified by Organizat ion Details LastModified Time Tobacco Smoking Status Never Smoker Driss Nava MD [address] [facility] , [address], [place], [address], [place] [facility] 08/06/2021 09:42:47 [...] Or The Highest Degree You Have Received? AO04763-1 Information not available 08/06/2021 Do You Have [...] not available 08/06/2021 What is your occupation? [employer] Information not available 08/06/2021 Do you [...] ICD10 Code Diagnosis IMO Codes Diagnosis Note [id number] Driss Nava MD PAIN OFFICE [address] [place] [address] [address] [place] [address] 08/06/2021 08:52:28 08/10/2021 14:01:19 Degeneration of lumbar intervertebral disc 30301031 M51.36 Lumbosacra l radiculopathy 6121814 M54.17 Health Concerns Section Related Observation LastModified by Organization Detai ls LastModified Time None Recorded Concern Status LastModified by Organization Details LastModified Time None Recorded Advance Directives Directive None Recorded Payers Insurance Date Sequence Insurance Name Policy Number Policy [place] Covered Member ID Pittman Member ID Guarantor Name 09/02/2021 1 [facility] [id number] Tarik Beckett [id number] Tarik Beckett Notes Date Note Type [...] recess and neuroforaminal encroachments Driss Nava MD [address] [place] [address] , [address], [place], [address], [place] [facility] 08/11/2021 16:08:54
[2025-06-23 13:59] LABS: Alanine Aminotransferase 30 U/L (0-40); Aspartate Amino Transferase 28 U/L (5-37); Estimated Glomerular Filt Rate > 60
== END 2025-06-23 09:57 | disposition home or self-care (01) ==
LOC: HO.HMGCX 09:56
PROVIDERS: PCP Internal Medicine; Visit Provider Internal Medicine Rheumatology
DX: M75.02 Adhesive capsulitis of left shoulder (principal); M25.511 Pain in right shoulder; M25.512 Pain in left shoulder; Z79.899 Other long term (current) drug therapy
CPT/HCPCS: 36415; 73030; 82565; 84450; 84460

== ENCOUNTER → 2025-06-23 10:32 | Outpatient (BNV) | payer MEDICARE, SELFPAY | PROVIDERS: PCP Internal Medicine; Visit Provider Radiology Diagnostic Ultrasound | DX: M19.011 Primary osteoarthritis, right shoulder (principal); M19.012 Primary osteoarthritis, left shoulder | CPT/HCPCS: 73030 ==